=== PATIENT | female | born 1960 | race Caucasian/White ===

== ENCOUNTER 2020-05-24 09:32 | Outpatient (REF) | payer BC, SELFPAY ==
[2020-05-25 15:34] LABS: BV Int Neg Control Negative (Negative); BV Int Pos Control Positive (Positive)
[2020-05-28 19:37] LABS: HPV mRNA E6/E7 Not Detected (Not Detected)
== END 2020-05-24 09:33 | disposition home or self-care (01) ==
LOC: HO.LAB 09:32
PROVIDERS: PCP Internal Medicine; Referring Provider Internal Medicine; Visit Provider Advanced Practice Midwife
DX: Z01.419 Encounter for gynecological examination (general) (routine) without abnormal findings (principal); N89.8 Other specified noninflammatory disorders of vagina
CPT/HCPCS: 87480; 87510; 87624; 87625; 87660; 88141; 88142

== ENCOUNTER → 2020-06-14 10:02 | Outpatient (BNVA) | payer BC, SELFPAY | PROVIDERS: PCP Internal Medicine; Visit Provider Advanced Practice Midwife | DX: Z76.89 Persons encountering health services in other specified circumstances (principal) ==

== ENCOUNTER 2020-10-02 09:56 | Outpatient (REF) | payer BC, SELFPAY ==
[2020-10-02 11:39] LABS: Hematocrit 41.9 % (37-47); Hemoglobin 13.5 g/dl (12.0-16.0)
[2020-10-02 11:47] LABS: Estimated Average Glucose 177 mg/dL; Hemoglobin A1c % 7.8 %
[2020-10-02 11:49] LABS: Alanine Aminotransferase 22 U/L (0-31); Albumin Level 4.7 g/dL (3.5-5.0); Alkaline Phosphatase 77 U/L (39-117); Anion Gap 14 (12-20); Aspartate Amino Transferase 23 U/L (5-31); Bilirubin Direct 0.2 mg/dL (0.0-0.5); Bilirubin Total 0.8 mg/dL (0.0-1.0); Blood Urea Nitrogen 9 mg/dL (9-16); Calcium 9.9 mg/dL (8.4-10.2); Carbon Dioxide 27 mmol/L (22-29); Chloride 103 mmol/L (96-108); Estimated Glomerular Filt Rate > 60; Glucose Random 79 mg/dL (60-115); Potassium 4.3 mmol/L (3.3-5.1); Sodium 140 mmol/L (135-145); Total Protein 8.1 g/dL (6.5-8.0)
[2020-10-02 12:22] LABS: Creatinine Urine 34.22 mg/dL; Microalbumin Urine < 5.0 mg/L
[2020-10-03 03:27] LABS: LDL Cholesterol Direct 93 mg/dL (<100)
== END 2020-10-02 09:57 | disposition home or self-care (01) ==
LOC: HO.HMGCLDS 09:56
PROVIDERS: PCP Internal Medicine; Visit Provider Internal Medicine
DX: E78.9 Disorder of lipoprotein metabolism, unspecified (principal); I10 Essential (primary) hypertension; E13.9 Other specified diabetes mellitus without complications; M19.90 Unspecified osteoarthritis, unspecified site
CPT/HCPCS: 36415; 80048; 80076; 82043; 83036; 83721; 85014; 85018

== ENCOUNTER 2020-12-19 12:46 | Outpatient (REF) | payer BC, SELFPAY ==
--- NOTE | ~2020-12-19 | XR_ITS ---
EXAMINATION: XR LUMBOSACRAL SPINE CLINICAL INFORMATION: Low back pain. COMPARISON: None TECHNIQUE: Three views of the lumbosacral spine. FINDINGS: There is normal lumbar lordosis. There is loss of L4-L5 disc height. Rest of the disc heights are normal. There is moderate left L3-L4 facet joint arthropathy and hypertrophy and bilateral moderate L4-L5 facet joint arthropathy. No acute fracture or lytic process seen. Paravertebral soft tissues are normal. XR/XR lumbar spine 2-3V IMPRESSION: 1. Degenerative disc changes L4-L5 disc level. 2. Moderate L4-L5 and bilateral L5-S1 facet joint arthropathy and hypertrophy.
== END 2020-12-19 12:47 | disposition home or self-care (01) ==
LOC: HO.HMGCX 12:46
PROVIDERS: PCP Internal Medicine; Visit Provider Internal Medicine
DX: M54.5 Low back pain (principal)
CPT/HCPCS: 72100

== ENCOUNTER 2021-02-14 08:57 | Outpatient (REF) | payer BC, SELFPAY ==
--- NOTE | 2021-02-14 08:59 | EMG_ITS ---
Left tibial and peroneal motor studies were performed. Left superficial peroneal and sural sensory studies were performed. Tibial H-reflex was obtained and paraspinal muscles were tested. 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 MD OLMAN Dumas/MULU / [id number]
== END 2021-02-14 08:58 | disposition home or self-care (01) ==
LOC: HO.NEURO 08:57
PROVIDERS: Visit Provider Internal Medicine
DX: R20.2 Paresthesia of skin (principal)
CPT/HCPCS: 95886; 95909

== ENCOUNTER 2021-03-26 14:11 | Outpatient (REF) | payer BC, SELFPAY ==
[2021-03-26 16:44] LABS: MANUAL DIFF FLAG NO
[2021-03-26 16:54] LABS: Basophils Absolute Auto 0.1 X10*3/uL (0.0-0.2); Basophils Percent Auto 0.9 % (0-2); Eosinophils Absolute Auto 0.2 X10*3/uL (0.0-0.4); Hematocrit 41.6 % (37-47); Hemoglobin 13.5 g/dl (12.0-16.0); Imm Gran Abs Auto 0.03 X10*3/uL (0.00-0.03); Imm Gran Pct Auto 0.4 % (0.0-0.4); Lymphocytes Absolute Auto 2.5 X10*3/uL (1.2-4.9); Mean Corpuscular HGB Conc 32.5 g/dl (31.0-35.0); Mean Corpuscular Hemoglobin 29.6 pg (27.0-33.0); Mean Corpuscular Volume 91.2 fL (80-98); Mean Platelet Volume 10.8 fL (9.4-12.3); Monocytes Absolute Auto 0.5 X10*3/uL (0.1-1.2); Neutrophils Absolute Auto 4.3 X10*3/uL (2.0-8.3); Neutrophils Percent Auto 56.7 % (45-73); Platelet Count 340 X10*3/uL (160-400); Red Blood Count 4.56 X10*6/uL (4.20-5.50); Red Cell Distribution Width 12.8 % (11.0-16.0); White Blood Count 7.6 X10*3/uL (4.8-10.8)
[2021-03-26 17:06] LABS: Estimated Average Glucose 171 mg/dL; Hemoglobin A1c % 7.6 %
[2021-03-26 17:20] LABS: Creatinine Urine 133.47 mg/dL; Microalbum/Creatinine Ratio Ur 15.7 ug/mg cr
[2021-03-26 17:30] LABS: Alanine Aminotransferase 19 U/L (0-31); Albumin Level 4.8 g/dL (3.5-5.0); Alkaline Phosphatase 70 U/L (39-117); Anion Gap 16 (12-20); Aspartate Amino Transferase 22 U/L (5-31); Bilirubin Total 0.5 mg/dL (0.0-1.0); Blood Urea Nitrogen 14 mg/dL (9-16); Calcium 10.5 mg/dL (8.4-10.2); Carbon Dioxide 24 mmol/L (22-29); Chloride 107 mmol/L (96-108); Estimated Glomerular Filt Rate 58; Glucose Random 182 mg/dL (60-115); Potassium 4.5 mmol/L (3.3-5.1); Sodium 142 mmol/L (135-145)
[2021-03-26 17:44] LABS: TSH reflex Free T4 0.96 uIU/mL (0.32-4.0)
[2021-03-28 01:51] LABS: LDL Cholesterol Direct 115 mg/dL (<100)
== END 2021-03-26 14:12 | disposition home or self-care (01) ==
LOC: HO.HMGCLDS 14:11
PROVIDERS: PCP Internal Medicine; Visit Provider Internal Medicine
DX: E13.9 Other specified diabetes mellitus without complications (principal); E66.9 Obesity, unspecified; E78.9 Disorder of lipoprotein metabolism, unspecified; I10 Essential (primary) hypertension
CPT/HCPCS: 36415; 80053; 82043; 83036; 83721; 84443; 85025

== ENCOUNTER 2021-10-08 09:44 | Outpatient (REF) | payer BC, SELFPAY ==
[2021-10-08 12:13] LABS: Alanine Aminotransferase 32 U/L (0-31); Albumin Level 4.7 g/dL (3.5-5.0); Alkaline Phosphatase 74 U/L (39-117); Anion Gap 13 (12-20); Aspartate Amino Transferase 36 U/L (5-31); Bilirubin Total 0.6 mg/dL (0.0-1.0); Blood Urea Nitrogen 13 mg/dL (9-16); Calcium 10.9 mg/dL (8.4-10.2); Carbon Dioxide 27 mmol/L (22-29); Chloride 103 mmol/L (96-108); Estimated Glomerular Filt Rate > 60; Glucose Random 147 mg/dL (60-115); Potassium 4.6 mmol/L (3.3-5.1); Sodium 138 mmol/L (135-145); Total Protein 7.9 g/dL (6.5-8.0)
[2021-10-08 12:31] LABS: Creatinine Urine 229.83 mg/dL; Microalbum/Creatinine Ratio Ur 18.2 ug/mg cr
[2021-10-08 12:32] LABS: Estimated Average Glucose 197 mg/dL; Hemoglobin A1c % 8.5 %
[2021-10-09 13:02] LABS: LDL Cholesterol Direct 117 mg/dL (<100)
== END 2021-10-08 09:45 | disposition home or self-care (01) ==
LOC: HO.HMGCLDS 09:44
PROVIDERS: Visit Provider Internal Medicine
DX: Z00.01 Encounter for general adult medical examination with abnormal findings (principal); E66.09 Other obesity due to excess calories; E78.9 Disorder of lipoprotein metabolism, unspecified; I10 Essential (primary) hypertension; E13.9 Other specified diabetes mellitus without complications
CPT/HCPCS: 36415; 80053; 82043; 83036; 83721

== ENCOUNTER 2022-03-12 09:12 | Outpatient (REF) | payer BC, SELFPAY ==
[2022-03-12 11:44] LABS: Estimated Average Glucose 189 mg/dL; Hemoglobin A1c % 8.2 %
[2022-03-12 11:45] LABS: Alanine Aminotransferase 20 U/L (0-31); Albumin Level 4.6 g/dL (3.5-5.0); Alkaline Phosphatase 67 U/L (39-117); Anion Gap 17 (12-20); Aspartate Amino Transferase 21 U/L (5-31); Bilirubin Total 0.7 mg/dL (0.0-1.0); Blood Urea Nitrogen 19 mg/dL (9-16); Calcium 9.9 mg/dL (8.4-10.2); Carbon Dioxide 23 mmol/L (22-29); Chloride 105 mmol/L (96-108); Estimated Glomerular Filt Rate > 60; Glucose Random 141 mg/dL (60-115); Potassium 4.5 mmol/L (3.3-5.1); Sodium 140 mmol/L (135-145); Total Protein 7.8 g/dL (6.5-8.0)
[2022-03-12 12:16] LABS: Creatinine Urine 107.58 mg/dL; Microalbum/Creatinine Ratio Ur 10.2 ug/mg cr
[2022-03-13 11:32] LABS: Calcium (PTHI) 9.9 mg/dL (8.6-10.4); PTHI 30 pg/mL (16-77)
== END 2022-03-12 09:13 | disposition home or self-care (01) ==
LOC: HO.HMGCLDS 09:12
PROVIDERS: PCP Internal Medicine; Visit Provider Internal Medicine
DX: E13.9 Other specified diabetes mellitus without complications (principal); E78.9 Disorder of lipoprotein metabolism, unspecified; I10 Essential (primary) hypertension; E83.52 Hypercalcemia; E66.09 Other obesity due to excess calories
CPT/HCPCS: 36415; 80053; 82043; 83036; 83970

== ENCOUNTER 2022-03-18 14:43 | Outpatient (REF) | payer BC, SELFPAY ==
--- NOTE | ~2022-03-18 | XR_ITS ---
EXAMINATION: XR HIP, RIGHT XR SHOULDER, RIGHT CLINICAL INFORMATION: Right hip and right shoulder pain. COMPARISON: None TECHNIQUE: Right hip 2 views. Right shoulder 3 views. FINDINGS: RIGHT HIP: There is a maintained right hip joint space. No bony erosive changes, acute fracture or dislocation. There is mild periarticular spurring. The soft tissues are normal. RIGHT SHOULDER: There is loss of right AC joint space with inferior periarticular spurring. No visible acute fracture, dislocation or subluxation seen. The soft tissues are normal. XR/XR hip RT min 2V IMPRESSION: Mild degenerative changes right AC joint with inferior periarticular spurring. No visible acute fracture, dislocation or subluxation seen. No acute fracture or dislocation right hip. There is mild degenerative changes.
--- NOTE | ~2022-03-18 | XR_ITS ---
EXAMINATION: XR HIP, RIGHT XR SHOULDER, RIGHT CLINICAL INFORMATION: Right hip and right shoulder pain. COMPARISON: None TECHNIQUE: Right hip 2 views. Right shoulder 3 views. FINDINGS: RIGHT HIP: There is a maintained right hip joint space. No bony erosive changes, acute fracture or dislocation. There is mild periarticular spurring. The soft tissues are normal. RIGHT SHOULDER: There is loss of right AC joint space with inferior periarticular spurring. No visible acute fracture, dislocation or subluxation seen. The soft tissues are normal. XR/XR shoulder RT min 2V IMPRESSION: Mild degenerative changes right AC joint with inferior periarticular spurring. No visible acute fracture, dislocation or subluxation seen. No acute fracture or dislocation right hip. There is mild degenerative changes.
== END 2022-03-18 14:44 | disposition home or self-care (01) ==
LOC: HO.HMGCX 14:43
PROVIDERS: PCP Internal Medicine; Visit Provider Internal Medicine
DX: M25.551 Pain in right hip (principal); M24.811 Other specific joint derangements of right shoulder, not elsewhere classified
CPT/HCPCS: 73030; 73502

== ENCOUNTER 2022-04-22 16:33 | Outpatient (REF) | payer BC, SELFPAY ==
[2022-04-22 17:56] LABS: Appearance Urine Turbid; Color Urine Yellow; Glucose Urine UA >=1000 mg/dL (Negative); Leukocyte Esterase Urine Large (3+) (Negative); Nitrite Urine Negative (Negative); PH 5.5 (5.0-9.0); Specific Gravity - Urine 1.015 (1.005-1.025); UMIC TRIGGER UACC YES; Urine Blood Moderate (2+) (Negative); Urine Ketones Negative (Negative); Urine Protein 30 (1+) mg/dL (Neg-Trace)
[2022-04-22 18:28] LABS: Bacteria Urine 4+ (None Seen); Hyaline Casts Urine 0-2 /LPF (0-2); UACC Culture Trigger YES; WBC Urine >50 /HPF (0-5)
== END 2022-04-22 16:34 | disposition home or self-care (01) ==
LOC: HO.LAB 16:33
PROVIDERS: PCP Internal Medicine; Visit Provider Internal Medicine
DX: R30.0 Dysuria (principal)
CPT/HCPCS: 81001; 87086; 87088; 87186

== ENCOUNTER 2022-04-30 07:12 | Outpatient (REF) | payer BC, SELFPAY ==
--- NOTE | ~2022-04-30 | XR_ITS ---
EXAMINATION: XR PELVIS CLINICAL INFORMATION: Pain COMPARISON: Right hip radiograph from 03/18/2022 TECHNIQUE: AP view of the pelvis. FINDINGS: No acute visible fracture or dislocation. Mild degenerative changes of the bilateral femoral acetabular joints with joint space narrowing and periarticular osteophyte formation. Degenerative arthropathy of the lower lumbar spine and lumbosacral junction. Joint spaces and alignment are otherwise maintained. Bowel gas is unremarkable. Soft tissues are unremarkable. XR/XR pelvis 1-2V IMPRESSION: 1. No acute visible fracture or dislocation. 2. Mild degenerative changes of the bilateral femoral acetabular joints. 3. Degenerative arthropathy of the lower lumbar spine and lumbosacral junction.
== END 2022-04-30 07:13 | disposition home or self-care (01) ==
LOC: HO.HOSX 07:12
PROVIDERS: Visit Provider Physician Assistant
DX: M25.551 Pain in right hip (principal); M25.552 Pain in left hip
CPT/HCPCS: 72170

== ENCOUNTER 2022-06-10 10:50 | Outpatient (REF) | payer BC, SELFPAY ==
--- NOTE | ~2022-06-10 | MM_ITS ---
EXAMINATION: MM SCREENING DIGITAL BREAST TOMOSYNTHESIS, BILATERAL CLINICAL INFORMATION: Screening. Asymptomatic. COMPARISON: Mammography: February 16, 2020 TECHNIQUE: Digital breast tomosynthesis is performed in both the craniocaudal and mediolateral oblique views along with computer-aided detection (CAD). Synthesized 2D images are generated from the tomosynthesis. FINDINGS: The breasts are almost entirely fatty (ACR BI-RADS breast composition Category a). There are no significant masses, abnormal calcifications, or other abnormalities. MM/MM tomosynthesis screening BI IMPRESSION: No significant changes ASSESSMENT: BI-RADS 1: Negative RECOMMENDATION: Routine annual mammography screening. This patient's information was entered into a reminder system with a target due date for their next mammogram.
== END 2022-06-10 10:51 | disposition home or self-care (01) ==
LOC: HO.MAMMO 10:50
PROVIDERS: PCP Internal Medicine; Visit Provider Internal Medicine
DX: Z12.31 Encounter for screening mammogram for malignant neoplasm of breast (principal)
CPT/HCPCS: 77063; 77067

== ENCOUNTER 2022-09-06 09:52 | Outpatient (REF) | payer BC, SELFPAY ==
[2022-09-06 10:50] LABS: MANUAL DIFF FLAG NO
[2022-09-06 10:55] LABS: Basophils Absolute Auto 0.1 X10*3/uL (0.0-0.2); Basophils Percent Auto 1.3 % (0-2); Eosinophils Absolute Auto 0.3 X10*3/uL (0.0-0.4); Eosinophils Percent Auto 4.8 % (0-4); Hematocrit 44.9 % (37.0-47.0); Hemoglobin 14.3 g/dl (12.0-16.0); Imm Gran Abs Auto 0.02 X10*3/uL (0.00-0.03); Imm Gran Pct Auto 0.3 % (0.0-0.4); Lymphocytes Absolute Auto 2.4 X10*3/uL (1.2-4.9); Lymphocytes Percent Auto 39.5 % (20-40); Mean Corpuscular HGB Conc 31.8 g/dl (31.0-35.0); Mean Corpuscular Hemoglobin 29.5 pg (27.0-33.0); Mean Corpuscular Volume 92.8 fL (80.0-98.0); Mean Platelet Volume 9.9 fL (9.4-12.3); Monocytes Absolute Auto 0.4 X10*3/uL (0.1-1.2); Monocytes Percent Auto 6.3 % (2-11); Neutrophils Absolute Auto 2.9 x10*3/uL (2.0-8.3); Neutrophils Percent Auto 47.8 % (45-73); Platelet Count 309 X10*3/uL (160-400); Red Blood Count 4.84 X10*6/uL (4.20-5.50); White Blood Count 6.1 X10*3/uL (4.8-10.8)
[2022-09-06 11:09] LABS: Estimated Average Glucose 131 mg/dL; Hemoglobin A1c % 6.2 %
[2022-09-06 12:11] LABS: Alanine Aminotransferase 16 U/L (0-31); Albumin Level 4.4 g/dL (3.5-5.0); Alkaline Phosphatase 63 U/L (39-117); Anion Gap 14 (12-20); Aspartate Amino Transferase 17 U/L (5-31); Bilirubin Total 0.6 mg/dL (0.0-1.0); Blood Urea Nitrogen 18 mg/dL (9-16); Calcium 9.8 mg/dL (8.4-10.2); Carbon Dioxide 25 mmol/L (22-29); Chloride 107 mmol/L (96-108); Cholesterol 156 mg/dL; Estimated Glomerular Filt Rate > 60; Glucose Fasting 84 mg/dL (60-99); Glucose Random 84 mg/dL (60-115); HDL Cholesterol 50 mg/dL; LDL Cholesterol Calculated 79 mg/dl; Potassium 4.9 mmol/L (3.3-5.1); Sodium 141 mmol/L (135-145); Total Protein 7.2 g/dL (6.5-8.0); Triglycerides 137 mg/dL
[2022-09-06 12:16] LABS: Creatinine Urine 115.02 mg/dL; Microalbum/Creatinine Ratio Ur 8.6 ug/mg cr
== END 2022-09-06 09:53 | disposition home or self-care (01) ==
LOC: HO.HMGCLDS 09:52
PROVIDERS: Visit Provider Internal Medicine
DX: Z00.01 Encounter for general adult medical examination with abnormal findings (principal); E66.09 Other obesity due to excess calories; I10 Essential (primary) hypertension; R80.9 Proteinuria, unspecified; M19.90 Unspecified osteoarthritis, unspecified site; M24.811 Other specific joint derangements of right shoulder, not elsewhere classified; M25.551 Pain in right hip; R79.89 Other specified abnormal findings of blood chemistry; E78.9 Disorder of lipoprotein metabolism, unspecified
CPT/HCPCS: 36415; 80053; 80061; 82043; 83036; 85025

== ENCOUNTER 2022-12-30 09:42 | Outpatient (REF) | payer BC, SELFPAY ==
[2022-12-30 11:40] LABS: Estimated Average Glucose 146 mg/dL; Hemoglobin A1c % 6.7 %
[2022-12-30 11:54] LABS: Creatinine Urine 45.27 mg/dL; Microalbum/Creatinine Ratio Ur 19.8 ug/mg cr
[2022-12-30 12:13] LABS: Alanine Aminotransferase 14 U/L (0-31); Albumin Level 4.8 g/dL (3.5-5.0); Alkaline Phosphatase 70 U/L (39-117); Anion Gap 13 (12-20); Aspartate Amino Transferase 15 U/L (5-31); Bilirubin Total 0.6 mg/dL (0.0-1.0); Blood Urea Nitrogen 16 mg/dL (9-16); Calcium 10.9 mg/dL (8.4-10.2); Carbon Dioxide 29 mmol/L (22-29); Chloride 104 mmol/L (96-108); Estimated Glomerular Filt Rate 57; Glucose Random 126 mg/dL (60-115); Sodium 141 mmol/L (135-145); Total Protein 8.2 g/dL (6.5-8.0)
== END 2022-12-30 09:43 | disposition home or self-care (01) ==
LOC: HO.HMGCLDS 09:42
PROVIDERS: PCP Internal Medicine; Visit Provider Internal Medicine
DX: E13.9 Other specified diabetes mellitus without complications (principal); E66.09 Other obesity due to excess calories; I10 Essential (primary) hypertension; R80.9 Proteinuria, unspecified; E78.9 Disorder of lipoprotein metabolism, unspecified
CPT/HCPCS: 36415; 80053; 82043; 83036

== ENCOUNTER 2023-05-23 09:48 | Outpatient (REF) | payer BC, SELFPAY ==
[2023-05-23 11:03] LABS: MANUAL DIFF FLAG NO
[2023-05-23 11:09] LABS: Basophils Absolute Auto 0.1 X10*3/uL (0.0-0.2); Eosinophils Absolute Auto 0.1 X10*3/uL (0.0-0.4); Eosinophils Percent Auto 1.7 % (0-4); Hematocrit 47.9 % (37.0-47.0); Hemoglobin 15.3 g/dl (12.0-16.0); Imm Gran Abs Auto 0.02 X10*3/uL (0.00-0.03); Imm Gran Pct Auto 0.3 % (0.0-0.4); Lymphocytes Absolute Auto 2.6 X10*3/uL (1.2-4.9); Lymphocytes Percent Auto 36.9 % (20-40); Mean Corpuscular HGB Conc 31.9 g/dl (31.0-35.0); Mean Corpuscular Volume 93.9 fL (80.0-98.0); Mean Platelet Volume 9.5 fL (9.4-12.3); Monocytes Absolute Auto 0.4 X10*3/uL (0.1-1.2); Monocytes Percent Auto 5.4 % (2-11); Neutrophils Absolute Auto 3.9 x10*3/uL (2.0-8.3); Neutrophils Percent Auto 54.7 % (45-73); Platelet Count 326 X10*3/uL (160-400); Red Cell Distribution Width 13.8 % (11.0-16.0); White Blood Count 7.2 X10*3/uL (4.8-10.8)
[2023-05-23 11:17] LABS: Estimated Average Glucose 143 mg/dL; Hemoglobin A1c % 6.6 % (<6.0)
[2023-05-23 11:20] LABS: Alanine Aminotransferase 16 U/L (0-31); Albumin Level 4.4 g/dL (3.5-5.0); Alkaline Phosphatase 57 U/L (39-117); Anion Gap 15 (12-20); Aspartate Amino Transferase 15 U/L (5-31); Bilirubin Total 0.8 mg/dL (0.0-1.0); Blood Urea Nitrogen 21 mg/dL (9-16); Calcium 10.1 mg/dL (8.4-10.2); Carbon Dioxide 26 mmol/L (22-29); Chloride 102 mmol/L (96-108); Estimated Glomerular Filt Rate 59; Glucose Random 84 mg/dL (60-115); Potassium 4.8 mmol/L (3.3-5.1); Sodium 138 mmol/L (135-145); Total Protein 7.9 g/dL (6.5-8.0)
[2023-05-23 12:14] LABS: Creatinine Urine 87.92 mg/dL; Microalbum/Creatinine Ratio Ur 10.2 ug/mg cr (<30)
== END 2023-05-23 09:49 | disposition home or self-care (01) ==
LOC: HO.HMGCLDS 09:48
PROVIDERS: PCP Internal Medicine; Visit Provider Internal Medicine
DX: E13.9 Other specified diabetes mellitus without complications (principal); I10 Essential (primary) hypertension; E78.9 Disorder of lipoprotein metabolism, unspecified; E66.09 Other obesity due to excess calories; G57.30 Lesion of lateral popliteal nerve, unspecified lower limb; R79.89 Other specified abnormal findings of blood chemistry; R80.9 Proteinuria, unspecified
CPT/HCPCS: 36415; 80053; 82043; 82570; 83036; 85025

== ENCOUNTER 2023-05-26 09:35 | Outpatient (AMB) | payer BC, SELFPAY ==
--- NOTE | 2023-05-26 09:36 | A.OFFPC_ITS ---
Vital Signs 05/26/23 09:37 Height 5 ft Weight 171 lb 2 oz BMI 33.4 BP 116/62 Blood Pressure Location Rt brachial Position Sitting Pulse 71 Pulse Source Pulse Oximeter Pulse Oximetry (%) 98 Oxygen Delivery Method Room Air Intake Visit Reasons: 4m follow up Allergies No Known Allergies [No Known Allergies*] Allergy (Verified 05/26/23 09:42) Medication List - Last Reconciled 05/26/23 by Bk Ramirez MD blood sugar diagnostic qd prn blood sugar diagnostic (Accu-Chek Guide test strips) Accu-chek guide me test strips. Patient to check blood sugars 3 times every other day blood-glucose meter As directed blood-glucose sensor ([employer] Chad 3 Sensor device) As directed calcium carbonate-vitamin D3 500 mg-5 mcg (200 unit) (Calcium 500 + D) 1 tab PO DAILY glipizide 5 mg PO BID 90 days Jardiance (empagliflozin) 25 mg PO DAILY 90 days NS lancets qd prn lisinopril 20 mg PO DAILY 90 days lovastatin 40 mg PO DAILY Tobacco use date assessed: 05/26/23 Dental Screening Dental Screen Date: 05/26/23 Did you have a dental visit in the last 12 months?: No Did you have a dental problem in the last 6 months where you did not have access to dental care?: No Was dental information given to patient?: Patient declined HPI 4m follow up HPI Details Patient is a 62-year-old female came in today for her regular follow-up appointment Patient's depression screening is positive, she admits that she does feel depressed because she misses her children She like to be started on medication, I have sent Lexapro 10 mg patient is to start taking that 1 every day Hypertension: Blood pressure stable with lisinopril 20 mg Continue lovastatin 40 mg for lipid control Diabetes mellitus: Hemoglobin A1c is stable at 6.6, checked recently Patient is on glipizide 10 mg b.i.d. and Jardiance 25 mg daily, she says that her blood pressure drops frequently I am cutting down glipizide to 5 mg b.i.d. 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 1. Little interest or pleasure in doing things: not at all 2. Feeling down, depressed, or hopeless: not at all 3. Trouble falling or staying asleep, or sleeping too much: more than half the days 4. Feeling tired or having little energy: more than half the days 5. Poor appetite or overeating: not at all 6. Feeling bad about yourself - or that you are a failure or have let yourself or your family down: more than half the days 7. Trouble concentrating on things, such as reading the newspaper or watching television: not at all 8. Moving or speaking so slowly that other people could have noticed. Or the opposite - being so fidgety or restless that you have been moving around a lot more than usual: not at all 9. Thoughts that you would be better off or of hurting yourself in some way: not at all Total score: 6 Depression Screening Interpretation: Negative Depression Screening Done: Yes 44231 - PHQ-9 Billing: Yes Source: Developed by Drs. Bo Can, Ermelinda Franco, Braulio Jones and colleagues, with an educational peter from [place]. Thrive Questionnaire Date Thrive assessed: 03/26/21 AUDIT C Alcohol Use Questionnaire (AUDIT-C) 1. How often do you have a drink containing alcohol?: Never 3. How often do you have six or more drinks on one occasion?: Never Total Score: 0 Score Reviewed/Action Taken: Yes GRAYSON-7 AMB Questionnaire GRAYSON-7 Date GRAYSON - 7 assessed: 05/26/23 Feeling nervous, anxious, or on edge: 0 = Not at all Not being able to stop or control worryin = Not at all Worrying too much about different things: 1 = Several days Trouble relaxin = Not at all Being so restless that it is hard to sit still: 0 = Not at all Becoming easily annoyed or irritable: 0 = Not at all Feeling afraid as if something awful might happen: 0 = Not at all Total GRAYSON-7 score (0-4 normal; 5-9 mild; 10-14 moderate; 15-21 severe): 1 Source: Developed by Drs. Bo Can, Ermelinda Franco, Braulio Jones and colleagues, with an educational peter from [place]. GRAYSON-7 Assessment Billing GRAYSON-7 Assessment Tool: GRAYSON-7 Assessment 22624 Review of Systems Const Denies chills and Denies fever(s) ENT Denies epistaxis and Denies nasal discharge Card Denies chest pain Resp Denies chest congestion, Denies cough and Denies hemoptysis GI Denies diarrhea and Denies nausea Skin/Breast Denies rash Neuro Reports no additional complaints Psych Reports no additional complaints Endo Reports no additional complaints Physical exam (Primary Care) Vital Signs: Last Vital Signs Pulse 71 05/26/23 09:37 BP 116/62 05/26/23 09:37 Pulse Ox 98 05/26/23 09:37 Oxygen Delivery Method Room Air 05/26/23 09:37 BMI result Body Mass Index 33.4 Tobacco/Smoking Status: Tobacco use Status Tobacco use date assessed 05/26/23 05/26/23 09:42 Patient Tobacco Use Status Former Tobacco user 05/26/23 09:37 e-Cigarette/Vaping Use Never Used 05/26/23 09:37 PHQ-9: PHQ-9 Score PHQ-9: Total score 6 05/26/23 11:54 Depression Screening Interpretation: Negative Thrive Assessment: Date of Thrive Assessment Date Thrive assessed 03/26/21 05/26/23 09:37 Const General: cooperative, comfortable and no acute distress Orientation/consciousness: patient oriented x3 HENMT Head: Yes normocephalic Eyes General: appearance normal, both eyes and all related structures Neck Neck: Yes supple Resp Effort & Inspection: normal respiratory effort, no cough and no stridor Cardio Rhythm: regular rhythm Heart sounds: S1 normal heart sound present and S2 normal heart sound present Skin General skin exam: turgor normal Neuro General: patient oriented x3, tone normal and moves all extremities Extrem Right lower extremity: no edema Left lower extremity: no edema Assessment and Plan Assessment & Plan (1) Diabetes 1.5, managed as type 2: Code(s): E13.9 - Other specified diabetes mellitus without complications (2) Hypertension, essential: Code(s): I10 - Essential (primary) hypertension (3) Lipid disorder: Code(s): E78.9 - Disorder of lipoprotein metabolism, unspecified (4) Major depression, recurrent: Code(s): F33.9 - Major depressive disorder, recurrent, unspecified Qualifiers: Active/Remission status: currently active Major depression episode severity: moderate Qualified Code(s): F33.1 - Major depressive disorder, recurrent, moderate (5) Obesity due to excess calories: Code(s): E66.09 - Other obesity due to excess calories Qualifiers: Obesity classification: adult class 1 (BMI 30 - 34.9) Serious obesity comorbidity presence: with serious comorbidity Body mass index: BMI 33.0-33.9 Qualified Code(s): E66.09 - Other obesity due to excess calories; Z68.33 - Body mass index [BMI] 33.0-33.9, adult (6) LFT elevation: Code(s): R79.89 - Other specified abnormal findings of blood chemistry (7) Microalbuminuria: Code(s): R80.9 - Proteinuria, unspecified Plan Patient is a 62-year-old female came in today for her regular follow-up appointment Patient's depression screening is positive, she admits that she does feel depressed because she misses her children She like to be started on medication, I have sent Lexapro 10 mg patient is to start taking that 1 every day Hypertension: Blood pressure stable with lisinopril 20 mg Continue lovastatin 40 mg for lipid control Diabetes mellitus: Hemoglobin A1c is stable at 6.6, checked recently Patient is on glipizide 10 mg b.i.d. and Jardiance 25 mg daily, she says that her blood pressure drops frequently I am cutting down glipizide to 5 mg b.i.d. BMI is elevated need to lose weight Patient does not want to take flu vaccine LFTs and microalbumin is stable Follow-up 3 months Medications: New escitalopram oxalate (Lexapro) 10 mg PO DAILY 90 tabs 0RF Changed From glipizide 10 mg PO BID 90 days 180 tabs 0RF E13.9 - Other specified diabetes mellitus without complications To glipizide 5 mg PO BID 180 tabs 0RF 90 days E13.9 - Other specified diabetes mellitus without complications Coding Level of Care Code Est Pt Level 4 (56454) Diagnoses Diabetes 1.5, managed as type 2 E13.9 Hypertension, essential I10 Lipid disorder E78.9 Moderate episode of recurrent major depressive disorder F33.1 Active/Remission status: currently active Major depression episode severity: moderate Class 1 obesity due to excess calories with serious comorbidity and body mass index (BMI) of 33.0 to 33.9 in adult E66.09; Z68.33 Obesity classification: adult class 1 (BMI 30 - 34.9) Serious obesity comorbidity presence: with serious comorbidity Body mass index: BMI 33.0-33.9 LFT elevation R79.89 Microalbuminuria R80.9 Additional Codes GRAYSON-7 Assessment Billing - GRAYSON-7 Assessment Tool: GRAYSON-7 Assessment [id number] ([id number])
[2023-05-26 09:37] VITALS: BP 116/62; PULSE 71; O2SAT 98; BMI 33.4
== END 2023-05-26 10:49 | disposition home or self-care (01) ==
PROVIDERS: PCP Internal Medicine; Visit Provider Internal Medicine
DX: E13.9 Other specified diabetes mellitus without complications (principal); F33.1 Major depressive disorder, recurrent, moderate; I10 Essential (primary) hypertension; E78.9 Disorder of lipoprotein metabolism, unspecified; E66.09 Other obesity due to excess calories; Z68.33 Body mass index [BMI] 33.0-33.9, adult; R79.89 Other specified abnormal findings of blood chemistry; R80.9 Proteinuria, unspecified
CPT/HCPCS: 99214

== ENCOUNTER 2023-09-22 09:24 | Outpatient (AMB) | payer BC, SELFPAY ==
[2023-09-22 09:25] VITALS: BP 126/72; PULSE 72; O2SAT 96; BMI 33.6
--- NOTE | 2023-09-22 09:25 | A.OFFPC_ITS ---
Vital Signs 3 09/22/23 09:25 Height 5 ft Weight 172 lb BMI 33.6 BP 126/72 Blood Pressure Location Rt brachial Position Sitting Pulse 72 Pulse Source Pulse Oximeter Pulse Oximetry (%) 96 Oxygen Delivery Method Room Air Intake Visit Reasons: 8m follow up Allergies No Known Allergies [No Known Allergies*] Allergy (Verified 09/22/23 09:26) Medication List - Last Reconciled 09/22/23 by Bk Ramirez MD blood sugar diagnostic qd prn blood sugar diagnostic (Accu-Chek Guide test strips) Accu-chek guide me test strips. Patient to check blood sugars 3 times every other day blood-glucose meter As directed blood-glucose sensor (3SP [employer] Chad 3 Sensor device) As directed calcium carbonate-vitamin D3 500 mg-5 mcg (200 unit) (Calcium 500 + D) 1 tab PO DAILY escitalopram oxalate (Lexapro) 10 mg PO DAILY glipizide 5 mg PO BID 90 days Jardiance (empagliflozin) 25 mg PO DAILY 90 days NS lancets qd prn lisinopril 20 mg PO DAILY 90 days lovastatin 40 mg PO DAILY Tobacco use date assessed: 09/22/23 Dental Screening Dental Screen Date: 09/22/23 Did you have a dental visit in the last 12 months?: No Did you have a dental problem in the last 6 months where you did not have access to dental care?: No Was dental information given to patient?: No HPI 8m follow up 2 HPI0 Details Patient is a 63-year-old female came in today for her regular follow-up appointment She could not tolerate Lexapro, patient says that it made her dizzy She says that more than depression she is feeling anxious Patient have peroneal neuropathy she is diabetic, I am starting her on gabapentin 100 mg to be taken at night And if patient can tolerate medication she may start taking 1 in the morning, I feel that it will help her in number of face including anxiety She is complaining of pain left hand palmar aspect for the past 2 months, patient says that she has not sure what is causing the pain But she feels it when she out stretch her hand , on examination she does have a slight swelling left side compared to right I have ordered x-ray offer hand at she will see a hand specialist She is to give me a call in 2 weeks to update me on this medication Hypertension: Blood pressure stable with lisinopril 20 mg Continue lovastatin 40 mg for lipid control Diabetes mellitus: Hemoglobin A1c is stable Patient is on glipizide 10 mg b.i.d. and Jardiance 25 mg daily, and glipizide to 5 mg b.i.d. 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 1. Little interest or pleasure in doing things: several days 2. Feeling down, depressed, or hopeless: not at all 3. Trouble falling or staying asleep, or sleeping too much: more than half the days 4. Feeling tired or having little energy: more than half the days 5. Poor appetite or overeating: more than half the days 6. Feeling bad about yourself - or that you are a failure or have let yourself or your family down: more than half the days 7. Trouble concentrating on things, such as reading the newspaper or watching television: several days 8. Moving or speaking so slowly that other people could have noticed. Or the opposite - being so fidgety or restless that you have been moving around a lot more than usual: not at all 9. Thoughts that you would be better off or of hurting yourself in some way: not at all Total score: 10 Depression Screening Interpretation: Positive Depression Screening Follow-up: Existing condition and In treatment Depression Screening Done: Yes 37202 - PHQ-9 Billing: Yes Source: Developed by Drs. Bo Can, Ermelinda Franco, Braulio Jones and colleagues, with an educational peter from [employer]. Thrive Questionnaire Date Thrive assessed: 09/22/23 I am a: Patient What is your living situation today?: I have a steady place to live Within the past 12 months, did the food you bought not last and you didn't have the money to get more?: Never true Within the past 12 months, did you worry whether your food would run out before you got money to buy more?: Never true Do you have trouble paying for medicines?: No Do you have trouble getting transportation to medical appointments?: No Do you have trouble paying your heating and electricity bill?: No Do you have trouble taking care of your child, family member or friend?: No Do you have trouble with day-to-day activities such as bathing, preparing meals, shopping, managing finances, etc.?: No Are you currently unemployed and looking for a job?: No Are you interested in more education?: No Please select the resources that you would like help with: None Currently or been in a relationship where the following occur: no concerns reported THRIVE Score: 0 GRAYSON-7 AMB Questionnaire GRAYSON-7 Date GRAYSON - 7 assessed: 09/22/23 Feeling nervous, anxious, or on edge: 2 = More than half the days Not being able to stop or control worryin = More than half the days Worrying too much about different things: 2 = More than half the days Trouble relaxin = More than half the days Being so restless that it is hard to sit still: 1 = Several days Becoming easily annoyed or irritable: 2 = More than half the days Feeling afraid as if something awful might happen: 2 = More than half the days Total GRAYSON-7 score (0-4 normal; 5-9 mild; 10-14 moderate; 15-21 severe): 13 Source: Developed by Drs. Bo Can, Braulio Steele and colleagues, with an educational peter from [employer]. GRAYSON-7 Assessment Billing GRAYSON-7 Assessment Tool: GRAYSON-7 Assessment 90691 Review of Systems Const Denies chills and Denies fever(s) ENT Denies epistaxis and Denies nasal discharge Card Denies chest pain Resp Denies chest congestion, Denies cough and Denies hemoptysis GI Denies diarrhea and Denies nausea Skin/Breast Denies rash Neuro Reports no additional complaints Psych Reports no additional complaints Endo Reports no additional complaints Physical exam (Primary Care) Vital Signs: Last Vital Signs Pulse 72 09/22/23 09:25 BP 126/72 09/22/23 09:25 Pulse Ox 96 09/22/23 09:25 Oxygen Delivery Method Room Air 09/22/23 09:25 BMI result Body Mass Index 33.6 Tobacco/Smoking Status: Tobacco use Status Tobacco use date assessed 09/22/23 09/22/23 09:28 Patient Tobacco Use Status Former Tobacco user 09/22/23 09:28 e-Cigarette/Vaping Use Never Used 09/22/23 09:28 PHQ-9: PHQ-9 Score PHQ-9: Total score 10 09/22/23 10:07 Depression Screening Interpretation: Positive Depression Screening Follow-up: Existing condition and In treatment Thrive Assessment: Date of Thrive Assessment Date Thrive assessed 09/22/23 09/22/23 10:07 Currently or been in a relationship where the following occur: no concerns reported Const General: cooperative, comfortable and no acute distress Orientation/consciousness: patient oriented x3 HENMT Head: Yes normocephalic Eyes General: appearance normal, both eyes and all related structures Neck Neck: Yes supple Resp Effort & Inspection: normal respiratory effort, no cough and no stridor Cardio Rhythm: regular rhythm Heart sounds: S1 normal heart sound present and S2 normal heart sound present Skin General skin exam: turgor normal Neuro General: patient oriented x3, tone normal and moves all extremities Extrem Hand/finger images: 2 1. Swelling compared to right, able to all fingers, discomfort with out stretch, no skin changes, sensory intact, pulse intact Right lower extremity: no edema Left lower extremity: no edema Assessment and Plan Assessment & Plan (1) Diabetes 1.5, managed as type 2: Code(s): E13.9 - Other specified diabetes mellitus without complications (2) Major depression, recurrent: Code(s): F33.9 - Major depressive disorder, recurrent, unspecified Qualifiers: Active/Remission status: currently active Major depression episode severity: moderate Qualified Code(s): F33.1 - Major depressive disorder, recurrent, moderate (3) Left hand pain: Code(s): M79.642 - Pain in left hand (4) Hypertension, essential: Code(s): I10 - Essential (primary) hypertension (5) Anxiety, generalized: Code(s): F41.1 - Generalized anxiety disorder (6) Lipid disorder: Code(s): E78.9 - Disorder of lipoprotein metabolism, unspecified (7) LFT elevation: Code(s): R79.89 - Other specified abnormal findings of blood chemistry (8) Neuropathy, peroneal nerve: Code(s): G57.30 - Lesion of lateral popliteal nerve, unspecified lower limb Qualifiers: Laterality: unspecified laterality Qualified Code(s): G57.30 - Lesion of lateral popliteal nerve, unspecified lower limb (9) Obesity due to excess calories: Code(s): E66.09 - Other obesity due to excess calories Qualifiers: Body mass index: BMI 33.0-33.9 Obesity classification: adult class 1 (BMI 30 - 34.9) Serious obesity comorbidity presence: with serious comorbidity Qualified Code(s): E66.09 - Other obesity due to excess calories; Z68.33 - Body mass index [BMI] 33.0-33.9, adult Plan Patient is a 63-year-old female came in today for her regular follow-up appointment She could not tolerate Lexapro, patient says that it made her dizzy She says that more than depression she is feeling anxious Patient have peroneal neuropathy she is diabetic, I am starting her on gabapentin 100 mg to be taken at night And if patient can tolerate medication she may start taking 1 in the morning, I feel that it will help her in number of face including anxiety She is complaining of pain left hand palmar aspect for the past 2 months, patient says that she has not sure what is causing the pain But she feels it when she out stretch her hand , on examination she does have a slight swelling left side compared to right I have ordered x-ray offer hand at she will see a hand specialist She is to give me a call in 2 weeks to update me on this medication Hypertension: Blood pressure stable with lisinopril 20 mg Continue lovastatin 40 mg for lipid control Diabetes mellitus: Hemoglobin A1c is stable Patient is on glipizide 10 mg b.i.d. and Jardiance 25 mg daily, and glipizide to 5 mg b.i.d. BMI is elevated need to lose weight LFTs and microalbumin is stable Follow-up 3 months Orders: Orders 2 Comprehensive Met. Panel Today E13.9 - Other specified diabetes mellitus without complications, E66.09 - Other obesity due to excess calories, E78.9 - Disorder of lipoprotein metabolism, unspecified, F33.9 - Major depressive disorder, recurrent, unspecified, F41.1 - Generalized anxiety disorder, G57.30 - Lesion of lateral popliteal nerve, unspecified lower limb, I10 - Essential (primary) hypertension, M54.12 - Radiculopathy, cervical region, R79.89 - Other specified abnormal findings of blood chemistry Microalbumin, Random (w Creat) Today E13.9 - Other specified diabetes mellitus without complications, E66.09 - Other obesity due to excess calories, E78.9 - Disorder of lipoprotein metabolism, unspecified, F33.9 - Major depressive disorder, recurrent, unspecified, F41.1 - Generalized anxiety disorder, G57.30 - Lesion of lateral popliteal nerve, unspecified lower limb, I10 - Essential (primary) hypertension, M54.12 - Radiculopathy, cervical region, R79.89 - Other specified abnormal findings of blood chemistry XR hand LT 2V Today M79.642 - Pain in left hand Hemoglobin A1c Today E13.9 - Other specified diabetes mellitus without complications, E66.09 - Other obesity due to excess calories, E78.9 - Disorder of lipoprotein metabolism, unspecified, F33.9 - Major depressive disorder, recurrent, unspecified, F41.1 - Generalized anxiety disorder, G57.30 - Lesion of lateral popliteal nerve, unspecified lower limb, I10 - Essential (primary) hypertension, M54.12 - Radiculopathy, cervical region, R79.89 - Other specified abnormal findings of blood chemistry Complete Blood Count Auto Diff Today E13.9 - Other specified diabetes mellitus without complications, E66.09 - Other obesity due to excess calories, E78.9 - Disorder of lipoprotein metabolism, unspecified, F33.9 - Major depressive disorder, recurrent, unspecified, F41.1 - Generalized anxiety disorder, G57.30 - Lesion of lateral popliteal nerve, unspecified lower limb, I10 - Essential (primary) hypertension, M54.12 - Radiculopathy, cervical region, R79.89 - Other specified abnormal findings of blood chemistry Referrals 2 Hand Surgery Referral M79.642 - Pain in left hand Medications: New 2 gabapentin 100 mg PO BEDTIME 30 caps 0RF Discontinued 2 escitalopram oxalate (Lexapro) Discontinued Reason: Doctor's Order 10 mg PO DAILY 90 tabs 0RF Coding Level of Care Code Est Pt Level 4 (31999) Diagnoses Diabetes 1.5, managed as type 2 E13.9 Moderate episode of recurrent major depressive disorder F33.1 Active/Remission status: currently active Major depression episode severity: moderate Left hand pain M79.642 Hypertension, essential I10 Anxiety, generalized F41.1 Lipid disorder E78.9 LFT elevation R79.89 Peroneal neuropathy, unspecified laterality G57.30 Laterality: unspecified laterality Class 1 obesity due to excess calories with serious comorbidity and body mass index (BMI) of 33.0 to 33.9 in adult E66.09; Z68.33 Body mass index: BMI 33.0-33.9 Obesity classification: adult class 1 (BMI 30 - 34.9) Serious obesity comorbidity presence: with serious comorbidity Additional Codes GRAYSON-7 Assessment Billing - GRAYSON-7 Assessment Tool: GRAYSON-7 Assessment [id number] ([id number])
== END 2023-09-22 10:02 | disposition home or self-care (01) ==
PROVIDERS: PCP Internal Medicine; Visit Provider Internal Medicine
DX: E13.9 Other specified diabetes mellitus without complications (principal); F33.1 Major depressive disorder, recurrent, moderate; M79.642 Pain in left hand; I10 Essential (primary) hypertension; F41.1 Generalized anxiety disorder; E78.9 Disorder of lipoprotein metabolism, unspecified; R79.89 Other specified abnormal findings of blood chemistry; G57.30 Lesion of lateral popliteal nerve, unspecified lower limb; E66.09 Other obesity due to excess calories; Z68.33 Body mass index [BMI] 33.0-33.9, adult
CPT/HCPCS: 99214

== ENCOUNTER 2023-09-22 10:03 | Outpatient (REF) | payer BC, SELFPAY ==
--- NOTE | ~2023-09-22 | XR_ITS ---
EXAMINATION: XR HAND, LEFT CLINICAL INFORMATION: Pain in left hand. COMPARISON: 06/28/2010 TECHNIQUE: PA, lateral, and oblique views of the left hand. FINDINGS: Advanced degenerative changes in the first carpometacarpal joint with joint space narrowing and hypertrophic change. Moderate osteoarthritic changes in scattered IP joints. 4 mm calcification in the soft tissues along the radial aspect of the carpi. Tiny calcification along the radial aspect of the trapezium. XR/XR hand LT 2V IMPRESSION: 1. Advanced degenerative changes in the first carpometacarpal joint. 2. Moderate osteoarthritic changes in scattered IP joints. 3. A 4 mm calcification in the soft tissues along the radial aspect of the carpi. Tiny calcification along the radial aspect of the trapezium. Recommend follow-up imaging in 10-14 days if fracture is suspected.
[2023-09-22 13:21] LABS: MANUAL DIFF FLAG NO
[2023-09-22 13:33] LABS: Basophils Absolute Auto 0.1 X10*3/uL (0.0-0.2); Basophils Percent Auto 1.4 % (0-2); Eosinophils Absolute Auto 0.3 X10*3/uL (0.0-0.4); Hematocrit 48.1 % (37.0-47.0); Hemoglobin 15.6 g/dl (12.0-16.0); Imm Gran Abs Auto 0.03 X10*3/uL (0.00-0.03); Imm Gran Pct Auto 0.4 % (0.0-0.4); Lymphocytes Absolute Auto 2.7 X10*3/uL (1.2-4.9); Lymphocytes Percent Auto 38.8 % (20-40); Mean Corpuscular HGB Conc 32.4 g/dl (31.0-35.0); Mean Corpuscular Hemoglobin 29.5 pg (27.0-33.0); Mean Corpuscular Volume 91.1 fL (80.0-98.0); Mean Platelet Volume 10.1 fL (9.4-12.3); Monocytes Absolute Auto 0.5 X10*3/uL (0.1-1.2); Monocytes Percent Auto 7.7 % (2-11); Neutrophils Absolute Auto 3.4 x10*3/uL (2.0-8.3); Neutrophils Percent Auto 47.7 % (45-73); Platelet Count 356 X10*3/uL (160-400); Red Blood Count 5.28 X10*6/uL (4.20-5.50); Red Cell Distribution Width 12.9 % (11.0-16.0)
[2023-09-22 13:39] LABS: Estimated Average Glucose 143 mg/dL; Hemoglobin A1c % 6.6 % (<6.0)
[2023-09-22 13:49] LABS: Alanine Aminotransferase 19 U/L (0-31); Albumin Level 4.6 g/dL (3.5-5.0); Alkaline Phosphatase 73 U/L (39-117); Anion Gap 15 (12-20); Aspartate Amino Transferase 19 U/L (5-31); Bilirubin Total 0.6 mg/dL (0.0-1.0); Blood Urea Nitrogen 14 mg/dL (9-16); Calcium 10.1 mg/dL (8.4-10.2); Carbon Dioxide 27 mmol/L (22-29); Chloride 102 mmol/L (96-108); Estimated Glomerular Filt Rate > 60; Glucose Random 105 mg/dL (60-115); Potassium 4.3 mmol/L (3.3-5.1); Sodium 140 mmol/L (135-145); Total Protein 8.6 g/dL (6.5-8.0)
[2023-09-22 16:45] LABS: Creatinine Urine 94.48 mg/dL; Microalbum/Creatinine Ratio Ur 22.2 ug/mg cr (<30)
== END 2023-09-22 10:04 | disposition home or self-care (01) ==
LOC: HO.HMGCX 10:03
PROVIDERS: PCP Internal Medicine; Visit Provider Internal Medicine
DX: M79.642 Pain in left hand (principal); F33.9 Major depressive disorder, recurrent, unspecified; R79.89 Other specified abnormal findings of blood chemistry; E66.09 Other obesity due to excess calories; M54.12 Radiculopathy, cervical region; E78.9 Disorder of lipoprotein metabolism, unspecified; I10 Essential (primary) hypertension; E13.9 Other specified diabetes mellitus without complications; F41.1 Generalized anxiety disorder
CPT/HCPCS: 36415; 73120; 80053; 82043; 82570; 83036; 85025

== ENCOUNTER 2023-10-27 10:18 | Outpatient (AMB) | payer BC, SELFPAY ==
--- NOTE | 2023-10-27 10:24 | MHC.OFFVIS ---
Intake Vital Signs 10/27/23 10:25 Height 5 ft Weight 172 lb BMI 33.6 Intake Visit Reasons: newprob- Pain in left hand Intake Note: Diana 63 yr old female who is ambidextrous, presents today for a new problem visit for her left hand pain. States pain is mainly on all her MCP on volar aspect of hand. Pain started about 1 month ago and has worsen with a burning sensation. No injury she can recall. At times she has numbness and tingling. No EMG for upper extremity done. Hx of O.A. XRays done on 09/22/23. Allergies No Known Allergies [No Known Allergies*] Allergy (Verified 10/27/23 10:28) HPI newprob- Pain in left hand HPI Details Diana is a 63 year old right hand dominant Diabetic woman who presents with complaints of left hand pain. She complains of a burning pain in her left hand, for ~1 month now. She is also concerned that her hand is swollen all the time . She denies any locking or catching but she says she has a painful burning sensation over the A1 pulleys of her fingers, particularly when her hand is held open. She also complains of occasional pain at the base of her thumb, worse with pinching or gripping activities. She reports only occasional numbness in her fingers, but says this is not very bothersome. She denies having a NCS done. She says her Diabetes is well controlled. She has left peroneal neuropathy, and normal sensation in her right leg. 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 Cognitive needs: No Hearing needs: No Vision needs: Yes Female Reproductive History Menstrual Age of Menarche: 13 Review of Systems Const All systems reviewed & are unremarkable except as noted in HPI and below Physical Exam Vital Signs: BMI result Body Mass Index 33.6 Const General: cooperative, healthy appearing and no acute distress Orientation/consciousness: patient oriented x3 HEENT Head: Yes normocephalic and Yes atraumatic Eyes EOM: EOMs intact bilaterally Resp Effort & Inspection: normal respiratory effort and able to speak in complete sentences Cardio Jugular venous distension: no JVD Skin General skin exam: turgor normal Rashes: no rashes Neuro General: patient oriented x3 Extrem Other: Evaluation of Left Upper Extremity: The patient is alert, oriented, and in no acute distress Neuro: Median, Ulnar, Radial nerves motor and sensory intact and sensation is normal to the tips of all digits No thenar or intrinsic wasting. Vascular: Cap refill brisk ROM: She can make a fist and extend all her digits Skin: No lacerations or abrasions. General: No Ecchymosis. No Erythema or evidence of infection. + shoulder sign Tender over the basal joint No tenderness over the a1 pulleys No locking or catching with flexion extension Finger MCP joints completely non-tender, both dorsally & volarly. Full active range of motion Radiographs: 3 views of the left hand from 09/22/23 were reviewed by me today in clinic. They show no fractures or dislocations. She has some basal joint osteoarthritis with joint space narrowing, subchondral sclerosis, and early osteophyte formation. Perhaps some mild joint space narrowing in the MCP and IP joints of the fingers, but no significant evidence of arthritic changes in these joints. Psych Appearance: grossly normal Affect: normal affect Attitude: cooperative Assessment & Plan Assessment & Plan (1) Osteoarthritis of carpometacarpal joint of left thumb: Code(s): M18.12 - Unilateral primary osteoarthritis of first carpometacarpal joint, left hand (2) Diabetes 1.5, managed as type 2: Code(s): E13.9 - Other specified diabetes mellitus without complications Plan Assessment & Plan: 1. Left Basal joint osteoarthritis I educated her about this condition I discussed treatment options I recommend activity modification & bracing She was fitted for a comfort cool brace to wear with daily activity I discussed activity modification, she should limit or avoid any heavy or repetitive pinching or gripping activities If her symptoms persist or worsen we may consider a steroid injection 2. Left hand burning sensation & perceived puffiness over the a1 pulleys of the fingers Of the index, middle, ring, and small fingers Etiology unclear No a1 manisha tenderness, no locking or catching, and no MCP joint tenderness Full ROM No treatment indicated at this time him for this problem. She knows to contact us if she has any changes or worsening in symptoms. Follow up p.r.n. Scribed for Tiff Ellison MD by Jagdish Handley, medical record coder, on 10/27/23 at 10:45 AM, EST. Coding Level of Care Code New Pt Level 3 (15801) Diagnoses Osteoarthritis of carpometacarpal joint of left thumb M18.12 Diabetes 1.5, managed as type 2 E13.9
[2023-10-27 10:25] VITALS: BMI 33.6
== END 2023-10-27 10:56 | disposition home or self-care (01) ==
PROVIDERS: PCP Internal Medicine; Visit Provider Orthopaedic Surgery
DX: M18.12 Unilateral primary osteoarthritis of first carpometacarpal joint, left hand (principal); E13.9 Other specified diabetes mellitus without complications
CPT/HCPCS: 99203

== ENCOUNTER → 2023-10-27 10:18 | Outpatient (BNVA) | payer BC, SELFPAY | PROVIDERS: PCP Internal Medicine; Visit Provider Orthopaedic Surgery ==

== ENCOUNTER 2023-12-23 12:40 | Outpatient (AMB) | payer BC, SELFPAY ==
--- NOTE | 2023-12-23 13:00 | MHC.PC.OV ---
Vital Signs 12/23/23 13:02 Height 5 ft Weight 168 lb BMI 32.8 BP 106/68 Blood Pressure Location Rt brachial Position Sitting Pulse 71 Pulse Source Pulse Oximeter Pulse Oximetry (%) 97 Oxygen Delivery Method Room Air Intake Visit Reasons: 3 month f/u Allergies No Known Allergies [No Known Allergies*] Allergy (Verified 12/23/23 13:02) Medication List - Last Reconciled 12/23/23 by Bk Ramirez MD blood sugar diagnostic qd prn blood sugar diagnostic (Accu-Chek Guide test strips) Accu-chek guide me test strips. Patient to check blood sugars 3 times every other day blood-glucose meter As directed blood-glucose sensor ([employer] Chad 3 Sensor device) As directed calcium carbonate-vitamin D3 500 mg-5 mcg (200 unit) (Calcium 500 + D) 1 tab PO DAILY glipizide 5 mg PO BID 90 days Jardiance (empagliflozin) 25 mg PO DAILY 90 days NS lancets qd prn lisinopril 20 mg PO DAILY 90 days lovastatin 40 mg PO DAILY Tobacco use date assessed: 09/22/23 Dental Screening Dental Screen Date: 09/22/23 HPI 3 month f/u HPI Details Patient is a 63-year-old female came in today for her regular follow-up appointment Patient has been having pain left side of upper back neck area nonradiating On examination it seems as if she has developed a strain of trapezius muscle 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 I have sent naproxen 500 mg she may take that up to 2 times a day 12 hours apart with food She is also started to have pain right shoulder, patient has had cortisone injection in the past a year ago which has helped her She says that she will call Orthopedic and book another appointment Anxiety: She could not tolerate Lexapro, patient says that it made her dizzy She says that more than depression she is feeling anxious peroneal neuropathy, she is diabetic, we tried gabapentin which started causing headache so we had to stop that Patient is wearing splint for left hand pain, she says that at time it helps but then at times it makes it worse Hypertension: Blood pressure is running low with lisinopril 20 mg I am reducing dose to 10 mg Continue lovastatin 40 mg for lipid control Diabetes mellitus: Hemoglobin A1c is stable Patient is on glipizide 10 mg b.i.d. and Jardiance 25 mg daily, and glipizide to 5 mg b.i.d. 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 How often do you have a drink containing alcohol?: Monthly or less 2. How many drinks containing alcohol do you have on a typical day when you are drinking?: 1 or 2 3. How often do you have six or more drinks on one occasion?: Never Total Score: 1 GRAYSON-7 AMB Questionnaire GRAYSON-7 Date GRAYSON - 7 assessed: 09/22/23 Feeling nervous, anxious, or on edge: 2 = More than half the days Not being able to stop or control worryin = More than half the days Worrying too much about different things: 1 = Several days Trouble relaxin = Several days Being so restless that it is hard to sit still: 1 = Several days Becoming easily annoyed or irritable: 2 = More than half the days Feeling afraid as if something awful might happen: 1 = Several days Total GRAYSON-7 score (0-4 normal; 5-9 mild; 10-14 moderate; 15-21 severe): 10 Source: Developed by Drs. Bo Can, Ermelinda Franco, Braulio Jones and colleagues, with an educational peter from [employer]. Review of Systems Const Denies chills and Denies fever(s) ENT Denies epistaxis and Denies nasal discharge Card Denies chest pain Resp Denies chest congestion, Denies cough and Denies hemoptysis GI Denies diarrhea and Denies nausea Skin/Breast Denies rash Neuro Reports no additional complaints Psych Reports no additional complaints Endo Reports no additional complaints Physical exam (Primary Care) Vital Signs: Last Vital Signs Pulse 71 12/23/23 13:02 BP 106/68 12/23/23 13:02 Pulse Ox 97 12/23/23 13:02 Oxygen Delivery Method Room Air 12/23/23 13:02 BMI result Body Mass Index 32.8 Tobacco/Smoking Status: Tobacco use Status Tobacco use date assessed 09/22/23 12/23/23 13:02 Patient Tobacco Use Status Former Tobacco user 12/23/23 13:02 e-Cigarette/Vaping Use Never Used 12/23/23 13:02 Thrive Assessment: Date of Thrive Assessment Date Thrive assessed 09/22/23 12/23/23 13:02 Const General: cooperative, comfortable and no acute distress Orientation/consciousness: patient oriented x3 HENMT Head: Yes normocephalic Eyes General: appearance normal, both eyes and all related structures Neck Neck: Yes supple Resp Effort & Inspection: normal respiratory effort, no cough and no stridor Cardio Rhythm: regular rhythm Heart sounds: S1 normal heart sound present and S2 normal heart sound present Back/Spine/Pelvis Back/spine/pelvis image: 1. Site of pain Skin General skin exam: turgor normal Neuro General: patient oriented x3, tone normal and moves all extremities Extrem Right lower extremity: no edema Left lower extremity: no edema Assessment and Plan Assessment & Plan (1) Diabetes 1.5, managed as type 2: Code(s): E13.9 - Other specified diabetes mellitus without complications (2) Hypertension, essential: Code(s): I10 - Essential (primary) hypertension (3) Lipid disorder: Code(s): E78.9 - Disorder of lipoprotein metabolism, unspecified (4) Arthrosis: Comment: Celebrex 200 mg once a day started Code(s): M19.90 - Unspecified osteoarthritis, unspecified site (5) Neuropathy, peroneal nerve: Code(s): G57.30 - Lesion of lateral popliteal nerve, unspecified lower limb Qualifiers: Laterality: unspecified laterality Qualified Code(s): G57.30 - Lesion of lateral popliteal nerve, unspecified lower limb (6) Shoulder pain, right: Code(s): M25.511 - Pain in right shoulder Qualifiers: Chronicity: chronic Qualified Code(s): M25.511 - Pain in right shoulder; G89.29 - Other chronic pain (7) Strain of left trapezius muscle: Code(s): S46.812A - Strain of other muscles, fascia and tendons at shoulder and upper arm level, left arm, initial encounter Qualifiers: Encounter type: initial encounter Qualified Code(s): S46.812A - Strain of other muscles, fascia and tendons at shoulder and upper arm level, left arm, initial encounter (8) LFT elevation: Code(s): R79.89 - Other specified abnormal findings of blood chemistry (9) Obesity due to excess calories: Code(s): E66.09 - Other obesity due to excess calories Qualifiers: Body mass index: BMI 33.0-33.9 Obesity classification: adult class 1 (BMI 30 - 34.9) Serious obesity comorbidity presence: with serious comorbidity Qualified Code(s): E66.09 - Other obesity due to excess calories; Z68.33 - Body mass index [BMI] 33.0-33.9, adult (10) Major depression, recurrent: Code(s): F33.9 - Major depressive disorder, recurrent, unspecified Qualifiers: Active/Remission status: currently active Major depression episode severity: moderate Qualified Code(s): F33.1 - Major depressive disorder, recurrent, moderate (11) Left hand pain: Code(s): M79.642 - Pain in left hand (12) Anxiety, generalized: Code(s): F41.1 - Generalized anxiety disorder Plan Patient is a 63-year-old female came in today for her regular follow-up appointment Patient has been having pain left side of upper back neck area nonradiating On examination it seems as if she has developed a strain of trapezius muscle 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 I have sent naproxen 500 mg she may take that up to 2 times a day 12 hours apart with food She is also started to have pain right shoulder, patient has had cortisone injection in the past a year ago which has helped her She says that she will call Orthopedic and book another appointment Anxiety: She could not tolerate Lexapro, patient says that it made her dizzy She says that more than depression she is feeling anxious peroneal neuropathy, she is diabetic, we tried gabapentin which started causing headache so we had to stop that Patient is wearing splint for left hand pain, she says that at time it helps but then at times it makes it worse Hypertension: Blood pressure is running low with lisinopril 20 mg I am reducing dose to 10 mg Continue lovastatin 40 mg for lipid control Diabetes mellitus: Hemoglobin A1c is stable Patient is on glipizide 10 mg b.i.d. and Jardiance 25 mg daily, and glipizide to 5 mg b.i.d. BMI is elevated need to lose weight LFTs and microalbumin is stable Follow-up 3 months Orders: Orders Hemoglobin A1c Today E13.9 - Other specified diabetes mellitus without complications, E66.09 - Other obesity due to excess calories, E78.9 - Disorder of lipoprotein metabolism, unspecified, G57.30 - Lesion of lateral popliteal nerve, unspecified lower limb, I10 - Essential (primary) hypertension, M19.90 - Unspecified osteoarthritis, unspecified site, M25.511 - Pain in right shoulder, R79.89 - Other specified abnormal findings of blood chemistry, S46.812A - Strain of other muscles, fascia and tendons at shoulder and upper arm level, left arm, initial encounter, Z68.33 - Body mass index [BMI] 33.0-33.9, adult XR cervical spine 2V Today M54.2 - Cervicalgia Complete Blood Count Auto Diff Today E13.9 - Other specified diabetes mellitus without complications, E66.09 - Other obesity due to excess calories, E78.9 - Disorder of lipoprotein metabolism, unspecified, G57.30 - Lesion of lateral popliteal nerve, unspecified lower limb, I10 - Essential (primary) hypertension, M19.90 - Unspecified osteoarthritis, unspecified site, M25.511 - Pain in right shoulder, R79.89 - Other specified abnormal findings of blood chemistry, S46.812A - Strain of other muscles, fascia and tendons at shoulder and upper arm level, left arm, initial encounter, Z68.33 - Body mass index [BMI] 33.0-33.9, adult Comprehensive Met. Panel Today E13.9 - Other specified diabetes mellitus without complications, E66.09 - Other obesity due to excess calories, E78.9 - Disorder of lipoprotein metabolism, unspecified, G57.30 - Lesion of lateral popliteal nerve, unspecified lower limb, I10 - Essential (primary) hypertension, M19.90 - Unspecified osteoarthritis, unspecified site, M25.511 - Pain in right shoulder, R79.89 - Other specified abnormal findings of blood chemistry, S46.812A - Strain of other muscles, fascia and tendons at shoulder and upper arm level, left arm, initial encounter, Z68.33 - Body mass index [BMI] 33.0-33.9, adult Medications: New naproxen 500 mg PO BID PRN 60 tabs 1RF pain Changed From lisinopril 20 mg PO DAILY 90 days 90 tabs 0RF I10 - Essential (primary) hypertension To lisinopril 10 mg PO DAILY 90 tabs 0RF 90 days I10 - Essential (primary) hypertension Coding Level of Care Code Est Pt Level 4 (44719) Complex EM visit Add On G2211 Diagnoses Diabetes 1.5, managed as type 2 E13.9 Hypertension, essential I10 Lipid disorder E78.9 Arthrosis M19.90 Peroneal neuropathy, unspecified laterality G57.30 Laterality: unspecified laterality Chronic right shoulder pain M25.511; G89.29 Chronicity: chronic Strain of left trapezius muscle, initial encounter S46.812A Encounter type: initial encounter LFT elevation R79.89 Class 1 obesity due to excess calories with serious comorbidity and body mass index (BMI) of 33.0 to 33.9 in adult E66.09; Z68.33 Body mass index: BMI 33.0-33.9 Obesity classification: adult class 1 (BMI 30 - 34.9) Serious obesity comorbidity presence: with serious comorbidity Moderate episode of recurrent major depressive disorder F33.1 Active/Remission status: currently active Major depression episode severity: moderate Left hand pain M79.642 Anxiety, generalized F41.1
[2023-12-23 13:02] VITALS: BP 106/68; PULSE 71; O2SAT 97; BMI 32.8
== END 2023-12-23 15:41 | disposition home or self-care (01) ==
PROVIDERS: PCP Internal Medicine; Visit Provider Internal Medicine
DX: I10 Essential (primary) hypertension (principal); E13.9 Other specified diabetes mellitus without complications; F33.1 Major depressive disorder, recurrent, moderate; E78.9 Disorder of lipoprotein metabolism, unspecified; M19.90 Unspecified osteoarthritis, unspecified site; G57.30 Lesion of lateral popliteal nerve, unspecified lower limb; M25.511 Pain in right shoulder; G89.29 Other chronic pain; S46.812A Strain of other muscles, fascia and tendons at shoulder and upper arm level, left arm, initial encounter; R79.89 Other specified abnormal findings of blood chemistry; E66.09 Other obesity due to excess calories; Z68.33 Body mass index [BMI] 33.0-33.9, adult
CPT/HCPCS: 99214

== ENCOUNTER 2024-04-02 09:30 | Outpatient (REF) | payer BC, SELFPAY ==
--- NOTE | ~2024-04-02 | XR_ITS ---
EXAMINATION: CERVICAL SPINE 2 VIEWS CLINICAL INFORMATION: Cervicalgia. COMPARISON: None. TECHNIQUE: AP and lateral views of the cervical spine are submitted. FINDINGS: Vertebral body heights and alignment are normal. The disc spaces are well-maintained. No acute fracture or spondylolisthesis is seen. There is multi-level cervical endplate and facet arthropathy. The dens and C7-T1 interface are normal. The posterior elements are intact. There is no prevertebral soft tissue swelling. XR/XR cervical spine 2V IMPRESSION: 1. No acute fracture or spondylolisthesis is seen. 2. The cervical disc spaces are well-maintained. 3. There is multi-level cervical endplate and facet arthropathy. Electronically signed by: Dayne Rao MD 04/21/2024 04:34 PM EDT RP
[2024-04-02 11:09] LABS: MANUAL DIFF FLAG NO
[2024-04-02 11:19] LABS: Basophils Absolute Auto 0.1 X10*3/uL (0.0-0.2); Basophils Percent Auto 1.3 % (0-2); Eosinophils Absolute Auto 0.3 X10*3/uL (0.0-0.4); Eosinophils Percent Auto 5.2 % (0-4); Hematocrit 46.9 % (37.0-47.0); Imm Gran Abs Auto 0.03 X10*3/uL (0.00-0.03); Imm Gran Pct Auto 0.5 % (0.0-0.4); Lymphocytes Absolute Auto 2.5 X10*3/uL (1.2-4.9); Lymphocytes Percent Auto 39.9 % (20-40); Mean Corpuscular Hemoglobin 29.2 pg (27.0-33.0); Mean Corpuscular Volume 91.2 fL (80.0-98.0); Mean Platelet Volume 10.4 fL (9.4-12.3); Monocytes Absolute Auto 0.4 X10*3/uL (0.1-1.2); Monocytes Percent Auto 6.8 % (2-11); Neutrophils Absolute Auto 2.9 x10*3/uL (2.0-8.3); Neutrophils Percent Auto 46.3 % (45-73); Platelet Count 303 X10*3/uL (160-400); Red Blood Count 5.14 X10*6/uL (4.20-5.50); Red Cell Distribution Width 13.6 % (11.0-16.0); White Blood Count 6.3 X10*3/uL (4.8-10.8)
[2024-04-02 11:34] LABS: Alanine Aminotransferase 17 U/L (0-31); Albumin Level 4.7 g/dL (3.5-5.0); Alkaline Phosphatase 62 U/L (39-117); Anion Gap 13 (12-20); Aspartate Amino Transferase 18 U/L (5-31); Bilirubin Total 0.8 mg/dL (0.0-1.0); Blood Urea Nitrogen 16 mg/dL (9-16); Calcium 10.5 mg/dL (8.4-10.2); Carbon Dioxide 25 mmol/L (22-29); Chloride 107 mmol/L (96-108); Estimated Glomerular Filt Rate > 60; Glucose Random 121 mg/dL (60-115); Potassium 4.3 mmol/L (3.3-5.1); Sodium 141 mmol/L (135-145)
[2024-04-02 11:44] LABS: Estimated Average Glucose 157 mg/dL; Hemoglobin A1c % 7.1 % (<6.0)
== END 2024-04-02 09:31 | disposition home or self-care (01) ==
LOC: HO.HMGCX 09:30
PROVIDERS: PCP Internal Medicine; Visit Provider Internal Medicine
DX: M54.2 Cervicalgia (principal); E13.9 Other specified diabetes mellitus without complications; I10 Essential (primary) hypertension; E78.9 Disorder of lipoprotein metabolism, unspecified; M19.90 Unspecified osteoarthritis, unspecified site; G57.30 Lesion of lateral popliteal nerve, unspecified lower limb; E66.09 Other obesity due to excess calories; Z68.33 Body mass index [BMI] 33.0-33.9, adult; R79.89 Other specified abnormal findings of blood chemistry; S46.812A Strain of other muscles, fascia and tendons at shoulder and upper arm level, left arm, initial encounter; M25.511 Pain in right shoulder
CPT/HCPCS: 36415; 72040; 80053; 83036; 85025

== ENCOUNTER 2024-04-05 13:56 | Outpatient (AMB) | payer BC, SELFPAY ==
[2024-04-05 14:10] VITALS: BP 124/76; PULSE 68; O2SAT 99; BMI 32.8
--- NOTE | 2024-04-05 14:10 | A.OFFPC_ITS ---
Vital Signs 04/05/24 14:10 Height 5 ft Weight 168 lb 2 oz BMI 32.8 BP 124/76 Blood Pressure Location Rt brachial Position Sitting Pulse 68 Pulse Source Pulse Oximeter Pulse Oximetry (%) 99 Oxygen Delivery Method Room Air Intake Visit Reasons: Annual PE - see comments Allergies No Known Allergies [No Known Allergies*] Allergy (Verified 04/05/24 14:13) Medication List - Last Reconciled 04/05/24 by Bk Ramirez MD blood sugar diagnostic qd prn blood sugar diagnostic (Accu-Chek Guide test strips) Accu-chek guide me test strips. Patient to check blood sugars 3 times every other day blood-glucose meter As directed blood-glucose sensor ([employer] Chad 3 Sensor device) As directed calcium carbonate-vitamin D3 500 mg-5 mcg (200 unit) (Calcium 500 + D) 1 tab PO DAILY glipizide 5 mg PO BID 90 days Jardiance (empagliflozin) 25 mg PO DAILY 90 days NS lancets qd prn lisinopril 10 mg PO DAILY 90 days lovastatin 40 mg PO DAILY naproxen 500 mg PO BID PRN Tobacco use date assessed: 04/05/24 Dental Screening Dental Screen Date: 04/05/24 Did you have a dental visit in the last 12 months?: Yes Did you have a dental problem in the last 6 months where you did not have access to dental care?: No Was dental information given to patient?: Patient has dentist HPI Annual PE - see comments HPI Details Patient is 63-year-old female came in today for physical examination Continued to have pain in her neck radiating to left shoulder She had an x-ray done 02 of April which is not read yet Meanwhile I am sending tramadol for the night and prednisone for few days to see if that helps her improve the pain She is having difficulty sleeping at night Patient does not want to see OBGYN Colonoscopy declined Mammogram declined Labs done recently shows hemoglobin A1c of 7.1% BMI is elevated patient is having difficulty losing weight Follow-up 3 or 4 months [facility] Medical History Vaginal atrophy Obesity Arthrosis Osteopenia Lipid disorder Hypertension, essential Diabetes 1.5, managed as type 2 Surgical History No pertinent past surgical history Social History Housing: House Alcohol intake: current Alcohol intake frequency: holidays/special occasions only Patient Tobacco Use Status: Former Tobacco user Years Smoked: 20 e-Cigarette/Vaping Use: Never Used Current occupational status: employed 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 How often do you have a drink containing alcohol?: Monthly or less 2. How many drinks containing alcohol do you have on a typical day when you are drinking?: 1 or 2 3. How often do you have six or more drinks on one occasion?: Never Total Score: 1 Score Reviewed/Action Taken: Yes GRAYSON-7 AMB Questionnaire GRAYSON-7 Date GRAYSON - 7 assessed: 09/22/23 Source: Developed by Drs. Bo Can, Ermelinda Franco, Braulio Jones and colleagues, with an educational peter from [employer]. Review of Systems Const Denies chills, Denies fever(s) and Denies headache(s) Eyes Denies blurry vision ENT Denies headache(s), Denies nasal discharge, Denies nasal obstruction, Denies odynophagia and Denies sinus pain Card Denies chest pain at rest and Denies chest pain with activity Resp Denies cough and Denies hemoptysis GI Denies diarrhea, Denies odynophagia, Denies vomiting and Denies hematemesis Reports as per HPI Musc Denies abnormal gait Skin/Breast Reports as per HPI Neuro Denies Neuro-related abnormal movements, Denies Abnormal speech present, Denies abnormal gait and Denies headache(s) Psych Denies mood swings and Denies paranoia Endo Reports as per HPI Hilario/Lymph Reports as per HPI Aller/Immun Reports as per HPI Physical exam (Primary Care) Vital Signs: Last Vital Signs Pulse 68 04/05/24 14:10 BP 124/76 04/05/24 14:10 Pulse Ox 99 04/05/24 14:10 Oxygen Delivery Method Room Air 04/05/24 14:10 BMI result Body Mass Index 32.8 Tobacco/Smoking Status: Tobacco use Status Tobacco use date assessed 04/05/24 04/05/24 14:13 Patient Tobacco Use Status Former Tobacco user 04/05/24 14:13 e-Cigarette/Vaping Use Never Used 04/05/24 14:13 Thrive Assessment: Date of Thrive Assessment Date Thrive assessed 09/22/23 04/05/24 14:13 Const General: cooperative, comfortable and no acute distress Orientation/consciousness: patient oriented x3 HENMT Head: Yes normocephalic and Yes atraumatic Eyes General: appearance normal, both eyes and all related structures Pupils: Equal, round and reactive pupils present EOM: EOMs intact bilaterally Neck Neck: Yes supple and No lymphadenopathy Thyroid: Thyroid normal Lymphatic: no lymphadenopathy noted Chest Breast/axilla palpation: normal palpation of the breasts Resp Effort & Inspection: normal respiratory effort and able to speak in complete sentences Auscultation: clear to auscultation bilaterally Cardio Heart sounds: S1 normal heart sound present and S2 normal heart sound present GI Palpation (GI): Soft to palpation and nontender Auscultation: normal bowel sounds General: Yes no CVA tenderness Back/Spine/Pelvis Back: no CVA tenderness Skin General skin exam: elasticity normal and turgor normal Neuro General: patient oriented x3 and gait normal Cranial nerves: Yes Equal, round and reactive pupils present Speech: No Abnormal speech present Coordination: tandem gait normal and Romberg test negative Extrem General: Yes normal exam except as noted and No edema Assessment and Plan Assessment & Plan (1) Encounter for general adult medical examination with abnormal findings: Code(s): Z00.01 - Encounter for general adult medical examination with abnormal findings (2) Diabetes 1.5, managed as type 2: Code(s): E13.9 - Other specified diabetes mellitus without complications (3) Cervical radiculopathy: Code(s): M54.12 - Radiculopathy, cervical region (4) Hypertension, essential: Code(s): I10 - Essential (primary) hypertension (5) Anxiety, generalized: Code(s): F41.1 - Generalized anxiety disorder (6) Lipid disorder: Code(s): E78.9 - Disorder of lipoprotein metabolism, unspecified (7) Obesity due to excess calories: Code(s): E66.09 - Other obesity due to excess calories Qualifiers: Obesity classification: adult class 1 (BMI 30 - 34.9) Serious obesity comorbidity presence: with serious comorbidity Body mass index: BMI 33.0-33.9 Qualified Code(s): E66.09 - Other obesity due to excess calories; Z68.33 - Body mass index [BMI] 33.0-33.9, adult (8) Arthrosis: Comment: Celebrex 200 mg once a day started Code(s): M19.90 - Unspecified osteoarthritis, unspecified site (9) Major depression, recurrent: Code(s): F33.9 - Major depressive disorder, recurrent, unspecified Qualifiers: Active/Remission status: currently active Major depression episode severity: moderate Qualified Code(s): F33.1 - Major depressive disorder, recurrent, moderate (10) Microalbuminuria: Code(s): R80.9 - Proteinuria, unspecified Plan Patient is 63-year-old female came in today for physical examination Continued to have pain in her neck radiating to left shoulder She had an x-ray done 02 of April which is not read yet Meanwhile I am sending tramadol for the night and prednisone for few days to see if that helps her improve the pain She is having difficulty sleeping at night Patient does not want to see OBGYN Colonoscopy declined Mammogram declined Labs done recently shows hemoglobin A1c of 7.1% BMI is elevated patient is having difficulty losing weight Follow-up 3 or 4 months Medications: New prednisone 20 mg PO DAILY 5 tabs 0RF 5 days tramadol 50 mg PO .qhs 30 tabs 0RF Neck pain 30 days Coding Level of Care Code Est Pt Level 3 (34290) Est Pt Prev Care 40-64y(05257) Diagnoses Encounter for general adult medical examination with abnormal findings Z00.01 Diabetes 1.5, managed as type 2 E13.9 Cervical radiculopathy M54.12 Hypertension, essential I10 Anxiety, generalized F41.1 Lipid disorder E78.9 Class 1 obesity due to excess calories with serious comorbidity and body mass index (BMI) of 33.0 to 33.9 in adult E66.09; Z68.33 Obesity classification: adult class 1 (BMI 30 - 34.9) Serious obesity comorbidity presence: with serious comorbidity Body mass index: BMI 33.0-33.9 Arthrosis M19.90 Moderate episode of recurrent major depressive disorder F33.1 Active/Remission status: currently active Major depression episode severity: moderate Microalbuminuria R80.9
== END 2024-04-05 14:36 | disposition home or self-care (01) ==
PROVIDERS: PCP Internal Medicine; Visit Provider Internal Medicine
DX: Z00.00 Encounter for general adult medical examination without abnormal findings (principal); E13.9 Other specified diabetes mellitus without complications; F33.1 Major depressive disorder, recurrent, moderate; M54.12 Radiculopathy, cervical region; I10 Essential (primary) hypertension; F41.1 Generalized anxiety disorder; E78.9 Disorder of lipoprotein metabolism, unspecified; E66.09 Other obesity due to excess calories; Z68.33 Body mass index [BMI] 33.0-33.9, adult; M19.90 Unspecified osteoarthritis, unspecified site; R80.9 Proteinuria, unspecified
CPT/HCPCS: 99213; 99396

== ENCOUNTER 2024-05-02 08:17 | Outpatient (AMB) | payer BC, SELFPAY ==
[2024-05-02 10:35] VITALS: BP 142/80; PULSE 78; TEMP 36.7; O2SAT 97; BMI 32.8
--- NOTE | 2024-05-02 10:35 | AM.OFFWIN_ITS ---
Intake Vital Signs 05/02/24 10:35 Height 5 ft Weight 168 lb BMI 32.8 BP 142/80 H Blood Pressure Location Rt brachial Position Sitting Pulse 78 Pulse Source Pulse Oximeter Temp 98.1 F Temp Source Oral Pulse Oximetry (%) 97 Intake Visit Reasons: EP-cold symptoms Intake Note: pt is here for c/o stuffy nose/congestion, ear pain Patient Tobacco Use Status: Former Tobacco user Allergies No Known Allergies [No Known Allergies*] Allergy (Verified 05/02/24 10:36) Do you need a note to return to daycare/school/sports/work: No HPI HPI Comments History of Present Illness Details Patient is a 63-year-old female complaining of 5 days of head congestion, stuffy nose, left ear pain and sore throat she says that the head congestion and stuffiness is worse on the left side. She denies any fevers, nausea, vomiting, diarrhea or shortness of breath. She denies a history of COPD or asthma. She states she has been taking Garrison decongestion and a.m. and p.m. but it does not seem to be helping much. She states that she so stuffy she can not sleep at night it is difficult to breathe with her nose being so stuffy. She states she did test for COVID yesterday and it came back negative. 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 Cognitive needs: No Hearing needs: No Vision needs: Yes Female Reproductive History Menstrual Age of Menarche: 13 Review of Systems Const All systems reviewed & are unremarkable except as noted in HPI and below Physical Exam Vital Signs: Last Vital Signs Temp 98.1 F 05/02/24 10:35 Pulse 78 09/30/24 10:35 BP 142/80 H 05/02/24 10:35 Pulse Ox 97 05/02/24 10:35 BMI result Body Mass Index 32.8 Const General: cooperative, healthy appearing, comfortable and no acute distress Orientation/consciousness: patient oriented x3 Limitations: no limitations HEENT Head: Yes normal to inspection Ears: hearing grossly normal bilaterally, external ears normal and TM's normal bilaterally General nose exam: Normal external nose present, Normal nares present and No nasal discharge present Face and sinus: Yes normal facial exam and Yes sinus tenderness Mouth: Normal oral and palatal mucosa present and moist mucous membranes Throat: Yes tonsils normal, Yes uvula midline and Yes posterior oropharynx abnormal (Erythema) Eyes General: appearance normal, both eyes and all related structures Neck Neck: Yes normal visual inspection Resp Effort & Inspection: normal respiratory effort, able to speak in complete sentences, Actively coughing, no respiratory distress, not tachypneic, no tripod positioning and no use of accessory muscles Auscultation: clear to auscultation bilaterally Cardio Rate: regular rate Rhythm: regular rhythm Heart sounds: normal S1 and S2 Skin General skin exam: no rashes or lesions noted Neuro General: patient oriented x3 Extrem General: Yes normal to inspection and Yes no clubbing, cyanosis or edema Assessment & Plan Assessment & Plan (1) Sinusitis: Code(s): J32.9 - Chronic sinusitis, unspecified Qualifiers: Sinusitis location: unspecified location Chronicity: acute Recurrence: non-recurrent Qualified Code(s): J01.90 - Acute sinusitis, unspecified Plan: Vital signs are stable, patient well-appearing, we will send prednisone likely sinusitis secondary to a viral infection. Recommended she also start using Flonase and a Neti pot. Plan See above Medications: New prednisone 20 mg PO DAILY 5 tabs 0RF Coding Level of Care Code Est Pt Level 3 (69517) Diagnoses Acute non-recurrent sinusitis, unspecified location J01.90 Sinusitis location: unspecified location Chronicity: acute Recurrence: non-recurrent
== END 2024-05-02 10:59 | disposition home or self-care (01) ==
PROVIDERS: PCP Internal Medicine; Visit Provider Physician Assistant
DX: J01.90 Acute sinusitis, unspecified (principal)

== ENCOUNTER 2024-05-02 08:17 | Outpatient (REF) | payer BC, SELFPAY ==
[2024-05-02 14:02] LABS: Influenza A PCR NEGATIVE (Negative); Influenza B PCR NEGATIVE (Negative); Resp Syncy Virus RNA Qual PCR NEGATIVE (Negative); SARS COV2 PCR INHOUSE NEGATIVE (Negative)
== END 2024-05-02 08:18 | disposition home or self-care (01) ==
LOC: HO.LNP 08:17
PROVIDERS: PCP Internal Medicine; Visit Provider Physician Assistant
DX: R09.89 Other specified symptoms and signs involving the circulatory and respiratory systems (principal)
CPT/HCPCS: 0241U

== ENCOUNTER 2024-05-05 08:52 | Outpatient (AMB) | payer BC, SELFPAY ==
--- NOTE | 2024-05-05 08:58 | MHC.PC.OV ---
Intake Visit Reasons: imaging result (neck xray) Allergies No Known Allergies [No Known Allergies*] Allergy (Verified 05/05/24 09:00) Medication List - Last Reconciled 05/05/24 by Bk Ramirez MD blood sugar diagnostic qd prn blood sugar diagnostic (Accu-Chek Guide test strips) Accu-chek guide me test strips. Patient to check blood sugars 3 times every other day blood-glucose meter As directed blood-glucose sensor ([employer] Chad 3 Sensor device) As directed calcium carbonate-vitamin D3 500 mg-5 mcg (200 unit) (Calcium 500 + D) 1 tab PO DAILY glipizide 5 mg PO BID 90 days Jardiance (empagliflozin) 25 mg PO DAILY 90 days NS lancets qd prn lisinopril 10 mg PO DAILY 90 days lovastatin 40 mg PO DAILY prednisone 20 mg PO DAILY tramadol 50 mg PO .qhs 30 days Tobacco use date assessed: 05/05/24 Dental Screening Dental Screen Date: 05/05/24 Did you have a dental visit in the last 12 months?: Yes Did you have a dental problem in the last 6 months where you did not have access to dental care?: No Was dental information given to patient?: Patient has dentist HPI imaging result (neck xray) HPI Details Patient continue to have neck pain radiating to right shoulder we got Xray cervical spine that showed No acute fracture or spondylolisthesis is seen. The cervical disc spaces are well-maintained. There is multi-level cervical endplate and facet arthropathy. she is taking tramadol at night, thats when her neck pain is worse refill sent I have also placed ref to pain management for further treatment after discussing with patient [facility] Medical History Vaginal atrophy Obesity Arthrosis Osteopenia Lipid disorder Hypertension, essential Diabetes 1.5, managed as type 2 Surgical History No pertinent past surgical history Social History Housing: House Alcohol intake: current Alcohol intake frequency: holidays/special occasions only Patient Tobacco Use Status: Former Tobacco user Years Smoked: 20 e-Cigarette/Vaping Use: Never Used Current occupational status: employed 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 Bo Can, Ermelinda Franco, Braulio Jonse and colleagues, with an educational peter from [employer]. Review of Systems Const Denies chills and Denies fever(s) ENT Denies epistaxis and Denies nasal discharge Card Denies chest pain Resp Denies chest congestion, Denies cough and Denies hemoptysis GI Denies diarrhea and Denies nausea Skin/Breast Denies rash Neuro Reports no additional complaints Psych Reports no additional complaints Endo Reports no additional complaints Physical exam (Primary Care) Tobacco/Smoking Status: Tobacco use Status Tobacco use date assessed 05/05/24 05/05/24 09:00 Patient Tobacco Use Status Former Tobacco user 05/05/24 09:00 e-Cigarette/Vaping Use Never Used 05/05/24 09:00 Thrive Assessment: Date of Thrive Assessment Date Thrive assessed 09/22/23 05/05/24 09:00 Telehealth Telehealth Telehealth Platform: [employer] Location of provider rendering services: practice address Location of patient: address on file Patient Identification confirmed using: Name, : Yes Telehealth method: voice only Patient verbally consented to treatment: Yes Patient verbally consented to billing insurance company: Yes Patient informed of any privacy concerns related to visit: Yes Minutes spent on Phone/Video with Pt.: 14 Coding Level of Care Code Tele Est Pt Level 3 (43655) Diagnoses Radiculitis of right cervical region M54.12 Assessment & Plan Assessment & Plan (1) Radiculitis of right cervical region: Code(s): M54.12 - Radiculopathy, cervical region Category: Medical Plan Patient continue to have neck pain radiating to right shoulder we got X ray cervical spine that showed No acute fracture or spondylolisthesis is seen. The cervical disc spaces are well-maintained. There is multi-level cervical endplate and facet arthropathy. she is taking tramadol at night, thats when her neck pain is worse refill sent I have also placed ref to pain management for further treatment after discussing with patient Orders: Referrals Pain Management Referral M54.12 - Radiculopathy, cervical region Medications: Refilled tramadol 50 mg PO .qhs 30 tabs 0RF Neck pain 30 days
== END 2024-05-05 11:54 | disposition home or self-care (01) ==
LOC: HO.HMCC 08:52
PROVIDERS: PCP Internal Medicine; Visit Provider Internal Medicine
DX: M54.12 Radiculopathy, cervical region (principal)

== ENCOUNTER → 2024-05-05 08:52 | Outpatient (BNVA) | payer BC, SELFPAY | PROVIDERS: PCP Internal Medicine; Visit Provider Internal Medicine ==

== ENCOUNTER 2024-05-18 09:53 | Outpatient (AMB) | payer BC, SELFPAY ==
[2024-05-18 10:21] VITALS: BP 112/57; PULSE 74; O2SAT 97; BMI 32.8
--- NOTE | 2024-05-18 10:21 | A.OFFVIS_ITS ---
Vital Signs 05/18/24 10:21 Height 5 ft Weight 168 lb BMI 32.8 BP 112/57 L Blood Pressure Location Rt brachial Position Sitting Pulse 74 Pulse Source Pulse Oximeter Pulse Oximetry (%) 97 Oxygen Delivery Method Room Air Intake Visit Reasons: Cervical Radiculopathy Allergies No Known Allergies [No Known Allergies*] Allergy (Verified 05/18/24 10:22) Medication List - Last Reconciled 05/18/24 by Luiza Field blood sugar diagnostic qd prn blood sugar diagnostic (Accu-Chek Guide test strips) Accu-chek guide me test strips. Patient to check blood sugars 3 times every other day blood-glucose meter As directed blood-glucose sensor ([employer] Chad 3 Sensor device) As directed calcium carbonate-vitamin D3 500 mg-5 mcg (200 unit) (Calcium 500 + D) 1 tab PO DAILY glipizide 5 mg PO BID 90 days Jardiance (empagliflozin) 25 mg PO DAILY 90 days NS lancets qd prn lisinopril 10 mg PO DAILY 90 days lovastatin 40 mg PO DAILY prednisone 20 mg PO DAILY tramadol 50 mg PO .qhs 30 days HPI Comments Details: Diana is a very pleasant 63-year-old female who presents to the office today for evaluation management of her chronic left-sided neck pain Recent x-ray reviewed, results as per below Patient has been suffering with this pain for approximately 1 year. She denies inciting injury, trauma, fall. Endorses left sided neck pain with occasional radiation towards the shoulder. 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 Decreased range of motion. Pain with looking over the left shoulder Patient has completed physical therapy without last year, she continues with home exercise program but pain persists Has been taking Tylenol and naproxen without improvement of her symptoms. Topical medications do not help Using a TENS unit with minimal relief Prescribed tramadol from her primary care doctor that she uses at bedtime with some improvement. Pain returns once medication is wore off. 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 Worse with movements and weather changes. Worse later in the day and into the night. In terms of muscle damage condition is described as aching, cramping, dull, sore Pain is negatively impacting patient's enjoyment of life, general activity, sleep, work, ability to perform activities of daily living and normal functioning Denies implantable devices, pacemaker defibrillator Denies current use of nicotine, tobacco, alcohol or illicit substances Denies current use of anticoagulants Patient is known diabetic, most recent A1c 7.1 in March 2024 [facility] Medical History Vaginal atrophy Obesity Arthrosis Osteopenia Lipid disorder Hypertension, essential Diabetes 1.5, managed as type 2 Surgical History No pertinent past surgical history Social History Housing: House Alcohol intake: current Alcohol intake frequency: holidays/special occasions only Patient Tobacco Use Status: Former Tobacco user Years Smoked: 20 e-Cigarette/Vaping Use: Never Used Current occupational status: employed 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 Answers questions appropriately. Fully engaged in examination. Skin: warm, dry, intact HEENT: Normocephalic. Hearing intact. Cardiac: External chest normal in appearance. Respiratory: No cough, audible wheezing or stridor. Abdomen: without gross distension. MS: No obvious swelling or deformities. Able to transition from sit to stand unassisted. Ambulates with bilaterally normal heel strike and toe off Cervical Spine: Visible inspection without gross abnormality Nontender to palpation over bilateral trapezius Minimally tender to palpation midline cervical vertebrae decreased cervical ROM in all planes Spurling compression test positive BUE strength 5/5 Elvey's tension test negative bilaterally Neurological: Oriented to person, place, time and situation. Thought process intact. No gait abnormalities appreciated. Psychiatric: Appropriate mood and affect. Good judgment and insight. Results Reviewed Results Reviewed: 04/02/24 XR/XR cervical spine 2V FINDINGS: Vertebral body heights and alignment are normal. The disc spaces are well-maintained. No acute fracture or spondylolisthesis is seen. There is multi-level cervical endplate and facet arthropathy. The dens and C7-T1 interface are normal. The posterior elements are intact. There is no prevertebral soft tissue swelling. IMPRESSION: 1. No acute fracture or spondylolisthesis is seen. 2. The cervical disc spaces are well-maintained. 3. There is multi-level cervical endplate and facet arthropathy. Assessment & Plan Assessment & Plan (1) Cervical spondylosis: Code(s): M47.812 - Spondylosis without myelopathy or radiculopathy, cervical region Category: Medical Plan Diana is a very pleasant 63-year-old female who presented to the office today for evaluation management of her chronic left sided neck pain History, physical exam and provocative testing consistent with cervical spondylosis Patient has exhausted conservative therapy including PT, home exercise program, [id number] medications, topical medications and nonsteroidal anti- inflammatory medications without improvement of her symptoms Discussed options for treatment including diagnostic interventional testing, epidural steroid injections, peripheral nerve stimulation with Sprint, RFA and more permanent neuromodulation. Will schedule for fluoroscopy guided diagnostic left C4-C5 C6 medial branch blocks with local anesthetic. All questions and concerns have been answered and patient agrees with the plan. Follow up after injections and sooner if needed. Coding Level of Care Code New Pt Level 4 (68133) Complex EM visit Add On G2211 Diagnoses Cervical spondylosis M47.812
== END 2024-05-18 10:44 | disposition home or self-care (01) ==
PROVIDERS: PCP Internal Medicine; Referring Provider Internal Medicine; Visit Provider Registered Nurse Emergency
DX: M47.812 Spondylosis without myelopathy or radiculopathy, cervical region (principal)
CPT/HCPCS: 99204

== ENCOUNTER → 2024-05-18 09:53 | Outpatient (BNVA) | payer BC, SELFPAY | PROVIDERS: PCP Internal Medicine; Referring Provider Internal Medicine; Visit Provider Registered Nurse Emergency ==

== ENCOUNTER 2025-02-24 09:39 | Outpatient (AMB) | payer BC, SELFPAY ==
[2025-02-24 09:44] VITALS: BP 136/72; PULSE 76; O2SAT 97; BMI 32.2
--- NOTE | 2025-02-24 09:44 | MHC.PC.OV ---
Vital Signs 02/24/25 09:44 Height 5 ft Weight 165 lb BMI 32.2 BP 136/72 Blood Pressure Location Lt brachial Position Sitting Pulse 76 Pulse Source Pulse Oximeter Pulse Oximetry (%) 97 Intake Visit Reasons: Followup BP, meds Allergies No Known Allergies (No Known Allergies*) Allergy (Verified 02/24/25 09:44) Medication List - Last Reconciled 02/24/25 by Bk Ramirez MD blood sugar diagnostic qd prn blood sugar diagnostic (Accu-Chek Guide test strips) Accu-chek guide me test strips. Patient to check blood sugars 3 times every other day blood-glucose meter As directed blood-glucose sensor ([employer] Chad 3 Sensor device) As directed calcium carbonate-vitamin D3 500 mg-5 mcg (200 unit) (Calcium 500 + D) 1 tab PO DAILY glipizide 5 mg PO BID 90 days Jardiance (empagliflozin) 25 mg PO DAILY 90 days NS lancets qd prn lisinopril 10 mg PO DAILY 90 days lovastatin 40 mg PO DAILY Tobacco use date assessed: 02/24/25 Dental Screening Dental Screen Date: 02/24/25 Did you have a dental visit in the last 12 months?: Yes Did you have a dental problem in the last 6 months where you did not have access to dental care?: No Was dental information given to patient?: Patient has dentist HPI Followup BP, meds HPI Details History - The patient is a 64-year-old female last time seen was mar of last year, didnt come in for follow up after that has H/o diabetes, HTN, Lipid disorder , obesity, depression presenting with headaches. The headaches have been persistent and the patient believes they may originate from neck pain, which she attributes to her driving work. - The patient acknowledges having no labs performed since March of the prior year, and a missed follow-up appointment in July. 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 - During the regular school year, her workload involves driving to and from destinations multiple times a day, with a reduced schedule during the summer. - The patient mentioned having eggs for breakfast, showing no requirement for a fasting state. Medications - Logastatin 40 mg for hyperlipidemia - Lisinopril 10 mg for hypertension - Jardiance for diabetes - Glipizide for diabetes - Tylenol (acetaminophen) for arthritis-related pain relief Problem List - Diabetes Mellitus - Hyperlipidemia - Hypertension - Cervical Degenerative Disease - depression - obesity Diagnostic results - Labs: Hemoglobin A1c 7.3% (most recent) - No other labs or tests since March of the prior year. Patient Instructions - Arrange and complete blood tests today. Fasting is not required. - Avoid using ibuprofen due to its potential impact on kidney function. - Tylenol is permissible for managing pain. - Report back if there are any worsening symptoms or concerns about medications. 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 and give us a call to set up a nurse visit Review of Systems General: No fever no chills neurological: No headaches no dizziness ear nose throat: No sore throat no hearing difficulty no ear pain cardiovascular: No syncope, no chest pain, no palpitations gastrointestinal: No nausea vomiting or diarrhea endocrine: No polyuria polydipsia no heat intolerance Physical Exam general: No acute distress HEENT: No acute findings neck: Pain present, degenerative cervical disease noted respiratory system: Able to talk in full sentences, no audible wheeze, no stridor cardiovascular: S1-S2 RRR gastrointestinal: No pain extremities: No new findings [employer]IV[employer]ITY TE[employer]ER: Alert awake oriented x3 motor sensory intact skin: Normal turgor [facility] Medical History Vaginal atrophy Obesity Arthrosis Osteopenia Lipid disorder Hypertension, essential Diabetes 1.5, managed as type 2 Surgical History No pertinent past surgical history Social History Housing: House Alcohol intake: current Alcohol intake frequency: holidays/special occasions only Patient Tobacco Use Status: Former Tobacco user Years Smoked: 20 e-Cigarette/Vaping Use: Never Used Current occupational status: employed 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 1. Little interest or pleasure in doing things: several days 2. Feeling down, depressed, or hopeless: not at all 3. Trouble falling or staying asleep, or sleeping too much: more than half the days 4. Feeling tired or having little energy: more than half the days 5. Poor appetite or overeating: more than half the days 6. Feeling bad about yourself - or that you are a failure or have let yourself or your family down: more than half the days 7. Trouble concentrating on things, such as reading the newspaper or watching television: several days 8. Moving or speaking so slowly that other people could have noticed. Or the opposite - being so fidgety or restless that you have been moving around a lot more than usual: not at all 9. Thoughts that you would be better off or of hurting yourself in some way: not at all Total score: 10 Depression Screening Interpretation: Positive Depression Screening Follow-up: Existing condition and In treatment Depression Screening Done: Yes 07349 - PHQ-9 Billing: Yes Source: Developed by Drs. Bo Can, Ermelinda Franco, Braulio Jones and colleagues, with an educational peter from [employer]. Thrive Questionnaire Date Thrive assessed: 02/24/25 I am a: Patient What is your living situation today?: I choose not to answer this question Within the past 12 months, did the food you bought not last and you didn't have the money to get more?: I choose not to answer this question Within the past 12 months, did you worry whether your food would run out before you got money to buy more?: I choose not to answer this question Do you have trouble paying for medicines?: I choose not to answer this question Do you have trouble getting transportation to medical appointments?: I choose not to answer this question Do you have trouble paying your heating and electricity bill?: I choose not to answer this question Do you have trouble taking care of your child, family member or friend?: I choose not to answer this question Do you have trouble with day-to-day activities such as bathing, preparing meals, shopping, managing finances, etc.?: I choose not to answer this question Are you currently unemployed and looking for a job?: I choose not to answer this question Are you interested in more education?: I choose not to answer this question Please select the resources that you would like help with: None Currently or been in a relationship where the following occur: I choose not to answer THRIVE Score: 0 AUDIT C Alcohol Use Questionnaire (AUDIT-C) 1. How often do you have a drink containing alcohol?: Never 3. How often do you have six or more drinks on one occasion?: Never Total Score: 0 Score Reviewed/Action Taken: Yes GRAYSON-7 AMB Questionnaire GRAYSON-7 Date GRAYSON - 7 assessed: 02/24/25 Feeling nervous, anxious, or on edge: 1 = Several days Not being able to stop or control worryin = Several days Worrying too much about different things: 2 = More than half the days Trouble relaxin = More than half the days Being so restless that it is hard to sit still: 1 = Several days Becoming easily annoyed or irritable: 2 = More than half the days Feeling afraid as if something awful might happen: 2 = More than half the days Total GRAYSON-7 score (0-4 normal; 5-9 mild; 10-14 moderate; 15-21 severe): 11 Source: Developed by Drs. Bo Can, Ermelinda Franco, Braulio Jones and colleagues, with an educational peter from [employer]. GRAYSON-7 Assessment Billing GRAYSON-7 Assessment Tool: GRAYSON-7 Assessment 59321 Physical exam (Primary Care) Vital Signs: Last Vital Signs Pulse 76 02/24/25 09:44 BP 136/72 02/24/25 09:44 Pulse Ox 97 02/24/25 09:44 BMI result Body Mass Index 32.2 Tobacco/Smoking Status: Tobacco use Status Tobacco use date assessed 02/24/25 02/24/25 09:47 Patient Tobacco Use Status Former Tobacco user 02/24/25 09:47 e-Cigarette/Vaping Use Never Used 02/24/25 09:47 PHQ-9: PHQ-9 Score PHQ-9: Total score 10 02/24/25 10:08 Depression Screening Interpretation: Positive Depression Screening Follow-up: Existing condition and In treatment Thrive Assessment: Date of Thrive Assessment Date Thrive assessed 02/24/25 02/24/25 09:47 Currently or been in a relationship where the following occur: I choose not to answer Results AMB Hemoglobin A1c AMB Hemoglobin A1c 7.3 % Last Edit by Jose Cruz Morales CMA on 02/24/25 10:00 Results Reviewed Results Reviewed: Laboratory Last Values Hgb A1c (Clinic) 7.3 % (4.0-6.0) H 02/24/25 09:50 Coding Level of Care Code Est Pt Level 4 (90640) Diagnoses Lipid disorder E78.9 Hypertension, essential I10 Diabetes 1.5, managed as type 2 E13.9 Anxiety, generalized F41.1 Moderate episode of recurrent major depressive disorder F33.1 Active/Remission status: currently active Major depression episode severity: moderate Class 1 obesity due to excess calories with serious comorbidity and body mass index (BMI) of 33.0 to 33.9 in adult E66.09; Z68.33 Body mass index: BMI 33.0-33.9 Obesity classification: adult class 1 (BMI 30 - 34.9) Serious obesity comorbidity presence: with serious comorbidity LFT elevation R79.89 Microalbuminuria R80.9 Neck pain M54.2 Cervical radiculopathy M54.12 Additional Codes GRAYSNO-7 Assessment Billing - GRAYSON-7 Assessment Tool: GRAYSON-7 Assessment 03816 ([id number]) PHQ-9 - 31513 - PHQ-9 Billing: Yes ([id number]) Assessment & Plan Assessment & Plan (1) Lipid disorder: Code(s): E78.9 - Disorder of lipoprotein metabolism, unspecified Category: Medical (2) Hypertension, essential: Code(s): I10 - Essential (primary) hypertension Category: Medical (3) Diabetes 1.5, managed as type 2: Code(s): E13.9 - Other specified diabetes mellitus without complications Category: Medical (4) Anxiety, generalized: Code(s): F41.1 - Generalized anxiety disorder Category: Medical (5) Major depression, recurrent: Code(s): F33.9 - Major depressive disorder, recurrent, unspecified Category: Medical Qualifiers: Active/Remission status: currently active Major depression episode severity: moderate Qualified Code(s): F33.1 - Major depressive disorder, recurrent, moderate (6) Obesity due to excess calories: Code(s): E66.09 - Other obesity due to excess calories Category: Medical Qualifiers: Body mass index: BMI 33.0-33.9 Obesity classification: adult class 1 (BMI 30 - 34.9) Serious obesity comorbidity presence: with serious comorbidity Qualified Code(s): E66.09 - Other obesity due to excess calories; Z68.33 - Body mass index [BMI] 33.0-33.9, adult (7) LFT elevation: Code(s): R79.89 - Other specified abnormal findings of blood chemistry Category: Medical (8) Microalbuminuria: Code(s): R80.9 - Proteinuria, unspecified Category: Medical (9) Neck pain: Code(s): M54.2 - Cervicalgia Category: Medical (10) Cervical radiculopathy: Code(s): M54.12 - Radiculopathy, cervical region Category: Medical Plan History - The patient is a 64-year-old female last time seen was mar of last year, didnt come in for follow up after that has H/o diabetes, HTN, Lipid disorder , obesity, depression presenting with headaches. The headaches have been persistent and the patient believes they may originate from neck pain, which she attributes to her driving work. - The patient acknowledges having no labs performed since March of the prior year, and a missed follow-up appointment in July. 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 - During the regular school year, her workload involves driving to and from destinations multiple times a day, with a reduced schedule during the summer. - The patient mentioned having eggs for breakfast, showing no requirement for a fasting state. Medications - Logastatin 40 mg for hyperlipidemia - Lisinopril 10 mg for hypertension - Jardiance for diabetes - Glipizide for diabetes - Tylenol (acetaminophen) for arthritis-related pain relief Problem List - Diabetes Mellitus - Hyperlipidemia - Hypertension - Cervical Degenerative Disease - depression - obesity - microalbuminuria Diagnostic results - Labs: Hemoglobin A1c 7.3% (most recent) - No other labs or tests since March of the prior year. Patient Instructions - Arrange and complete blood tests today. Fasting is not required. - Avoid using ibuprofen due to its potential impact on kidney function. - Tylenol is permissible for managing pain. - Report back if there are any worsening symptoms or concerns about medications. 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 and give us a call to set up a nurse visit Orders: Orders Complete Blood Count Auto Diff Today E13.9 - Other specified diabetes mellitus without complications, E66.09 - Other obesity due to excess calories, E78.9 - Disorder of lipoprotein metabolism, unspecified, F33.1 - Major depressive disorder, recurrent, moderate, F41.1 - Generalized anxiety disorder, I10 - Essential (primary) hypertension, M54.12 - Radiculopathy, cervical region, M54.2 - Cervicalgia, R79.89 - Other specified abnormal findings of blood chemistry, R80.9 - Proteinuria, unspecified, Z68.33 - Body mass index [BMI] 33.0-33.9, adult Comprehensive Met. Panel Today E13.9 - Other specified diabetes mellitus without complications, E66.09 - Other obesity due to excess calories, E78.9 - Disorder of lipoprotein metabolism, unspecified, F33.1 - Major depressive disorder, recurrent, moderate, F41.1 - Generalized anxiety disorder, I10 - Essential (primary) hypertension, M54.12 - Radiculopathy, cervical region, M54.2 - Cervicalgia, R79.89 - Other specified abnormal findings of blood chemistry, R80.9 - Proteinuria, unspecified, Z68.33 - Body mass index [BMI] 33.0-33.9, adult Microalbumin, Random (w Creat) Today E13.9 - Other specified diabetes mellitus without complications AMB Hemoglobin A1c Today Z13.9 - Encounter for screening, unspecified LDL Cholesterol Direct Today E13.9 - Other specified diabetes mellitus without complications, E66.09 - Other obesity due to excess calories, E78.9 - Disorder of lipoprotein metabolism, unspecified, F33.1 - Major depressive disorder, recurrent, moderate, F41.1 - Generalized anxiety disorder, I10 - Essential (primary) hypertension, M54.12 - Radiculopathy, cervical region, M54.2 - Cervicalgia, R79.89 - Other specified abnormal findings of blood chemistry, R80.9 - Proteinuria, unspecified, Z68.33 - Body mass index [BMI] 33.0-33.9, adult Medications: New semaglutide (weight loss) (Wade) administer weeks 1 through 4 of therapy 0.25 mg (0.5 mL) subcut QWEEK 2 mL 2RF E13.9 - Other specified diabetes mellitus without complications, E66.09 - Other obesity due to excess calories, E78.9 - Disorder of lipoprotein metabolism, unspecified, I10 - Essential (primary) hypertension, Z68.33 - Body mass index [BMI] 33.0-33.9, adult
== END 2025-02-24 11:51 | disposition home or self-care (01) ==
LOC: HO.HMCC 09:39
PROVIDERS: PCP Internal Medicine; Visit Provider Internal Medicine
DX: I10 Essential (primary) hypertension (principal); E13.9 Other specified diabetes mellitus without complications; F33.1 Major depressive disorder, recurrent, moderate; E78.9 Disorder of lipoprotein metabolism, unspecified; F41.1 Generalized anxiety disorder; E66.09 Other obesity due to excess calories; Z68.33 Body mass index [BMI] 33.0-33.9, adult; R79.89 Other specified abnormal findings of blood chemistry; R80.9 Proteinuria, unspecified; M54.2 Cervicalgia; M54.12 Radiculopathy, cervical region

== ENCOUNTER 2025-02-24 09:39 | Outpatient (REF) | payer BC, SELFPAY ==
[2025-02-24 13:00] LABS: MANUAL DIFF FLAG NO
[2025-02-24 13:08] LABS: Hematocrit 45.2 % (37.0-47.0); Hemoglobin 14.6 g/dl (12.0-16.0); Imm Gran Abs Auto 0.02 X10*3/uL (0.00-0.03); Imm Gran Pct Auto 0.3 % (0.0-0.4); Lymphocytes Absolute Auto 2.3 X10*3/uL (1.2-4.9); Mean Corpuscular HGB Conc 32.3 g/dl (31.0-35.0); Mean Corpuscular Hemoglobin 29.3 pg (27.0-33.0); Mean Corpuscular Volume 90.8 fL (80.0-98.0); NRBC Abs Auto 0.000 X10*3/uL (0.0-0.012); NRBC Pct Auto 0.0 /100WBC (0.0-0.2); Platelet Count 303 X10*3/uL (160-400); Red Blood Count 4.98 X10*6/uL (4.20-5.50); White Blood Count 6.2 X10*3/uL (4.8-10.8)
[2025-02-24 13:22] LABS: Alanine Aminotransferase 18 U/L (0-31); Albumin Level 4.7 g/dL (3.5-5.0); Alkaline Phosphatase 68 U/L (39-117); Anion Gap 14 (12-20); Aspartate Amino Transferase 21 U/L (5-31); Blood Urea Nitrogen 19 mg/dL (9-16); Calcium 9.6 mg/dL (8.4-10.2); Carbon Dioxide 25 mmol/L (22-29); Chloride 106 mmol/L (96-108); Estimated Glomerular Filt Rate > 60; Potassium 4.1 mmol/L (3.3-5.1); Sodium 141 mmol/L (135-145); Total Protein 7.7 g/dL (6.5-8.0)
[2025-02-24 13:38] LABS: Microalbum/Creatinine Ratio Ur 14.1 ug/mg cr (<30)
== END 2025-02-24 09:40 | disposition home or self-care (01) ==
LOC: HO.HMGCLDS 09:39
PROVIDERS: PCP Internal Medicine; Visit Provider Internal Medicine
DX: E78.5 Hyperlipidemia, unspecified (principal); I10 Essential (primary) hypertension; E13.9 Other specified diabetes mellitus without complications; F41.1 Generalized anxiety disorder; F33.1 Major depressive disorder, recurrent, moderate; E66.09 Other obesity due to excess calories; Z68.33 Body mass index [BMI] 33.0-33.9, adult; R79.89 Other specified abnormal findings of blood chemistry; R80.9 Proteinuria, unspecified; M54.2 Cervicalgia; M54.12 Radiculopathy, cervical region; Z79.84 Long term (current) use of oral hypoglycemic drugs; Z79.899 Other long term (current) drug therapy; Z13.31 Encounter for screening for depression; Z13.39 Encounter for screening examination for other mental health and behavioral disorders
CPT/HCPCS: 36415; 80053; 82043; 82570; 83036; 83721; 85025; 96127

== ENCOUNTER 2025-04-19 10:09 | Outpatient (AMB) | payer BC, SELFPAY ==
--- NOTE | 2025-04-19 10:14 | A.OFFPC_ITS ---
Vital Signs 04/19/25 10:15 Height 5 ft Weight 163 lb BMI 31.8 BP 126/70 Blood Pressure Location Lt brachial Position Sitting Pulse 74 Pulse Source Pulse Oximeter Pulse Oximetry (%) 96 Intake Visit Reasons: PE Allergies No Known Allergies (No Known Allergies*) Allergy (Verified 04/19/25 10:15) Medication List - Last Reconciled 04/19/25 by Bk Ramirez MD blood sugar diagnostic qd prn blood sugar diagnostic (Accu-Chek Guide test strips) Accu-chek guide me test strips. Patient to check blood sugars 3 times every other day blood-glucose meter As directed blood-glucose sensor ([employer] Chad 3 Sensor device) As directed calcium carbonate-vitamin D3 500 mg-5 mcg (200 unit) (Calcium 500 + D) 1 tab PO DAILY glipizide 5 mg PO BID 90 days Jardiance (empagliflozin) 25 mg PO DAILY 90 days NS lancets qd prn lisinopril 10 mg PO DAILY 90 days lovastatin 40 mg PO DAILY Tobacco use date assessed: 02/24/25 Dental Screening Dental Screen Date: 02/24/25 HPI PE HPI Details History of Present Illness The patient is a 64-year-old female presenting for a routine physical examination. Essential Hypertension: - Hypertension is managed with medicatio n. - tolerating meds Type 2 Diabetes Mellitus: - Diabetes is currently managed with Gli pizide and Jardiance. - Blood sugar levels have been elevated the past few days as per patient, attributed to having a cold. - The patient monitors glucose once or t wice a week. - A1c was at 7.3 in January. Obesity: - The patient has a BMI of 31.8. - trying to lose wt Lipid Disorder: - The patient is on lovastatin for lipid management. - Labs conducted in January indicated good cholesterol levels. Upper Respiratory Infection (suspected): - The patient reports a cold and attribu [place] recent elevated blood sugar levels to the illness. 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 - Mammogram: Patient declined - Colonoscopy: Patient declined - Pap smear: Patient declined - Current vaccination: Received a flu va ccine - Blood test scheduled for three months Medications - Glipizide 5 mg BID for Type 2 Diabetes Mellitus - Jardiance 25 mg daily for Type 2 Diabe syd[place] Mellitus - Lisinopril 10 mg for Essential Hyperte nsion (dose inferred from previous history, not discussed in visit) - Lovastatin for Lipid Disorder Patient Instructions - Continue current medication regimen - Monitor blood sugar regularly - Schedule blood tests in three months f or follow-up - Complete fasting labs as ordered - Obt[facility] - Received flu vaccine and encouraged du e to exposure to school environment f/u 3-4 M Review of Systems - General: No fever no chills - Neurological: No headaches no dizzin ess - Ear nose throat: No sore throat no hearing difficulty no ear pain - Cardiovascular: No syncope, no chest pain, no palpitations - Gastrointestinal: No nausea vomiting or diarrhea - Endocrine: No polyuria polydipsia no heat intolerance - Genitourinary: No dysuria - Skin: No new complaints Physical Exam General: Cooperative, healthy appearing, comfortable, no acute distress Orientation: Patient oriented x3 Head: Normal to inspection Ears: Within normal limit visually Nose: Normal external nose present Face and sinus: Normal facial exam Eyes: Appearance normal, extraocular movement intact pupils reactive Neck: Normal visual inspection and supple Respiratory: Normal respiratory effort and able to speak in complete sentences. Clear to auscultation, no stridor Cardiovascular: S1 and S2 RRR GI: Normal to inspection. Soft to palpation and nontender Skin: Turgor normal, no acute findings Neuro: Patient oriented x3, motor sensory intact, balance intact, tandem pass Extremities: Normal to inspection, right shoulder with limited ROM to 80 degree [facility] Medical History Vaginal atrophy Obesity Arthrosis Osteopenia Lipid disorder Hypertension, essential Diabetes 1.5, managed as type 2 Surgical History No pertinent past surgical history Social History Housing: House Alcohol intake: current Alcohol intake frequency: holidays/special occasions only Patient Tobacco Use Status: Former Tobacco user Years Smoked: 20 e-Cigarette/Vaping Use: Never Used Current occupational status: employed 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 1. Little interest or pleasure in doing things: several days 2. Feeling down, depressed, or hopeless: not at all 3. Trouble falling or staying asleep, or sleeping too much: more than half the days 4. Feeling tired or having little energy: more than half the days 5. Poor appetite or overeating: more than half the days 6. Feeling bad about yourself - or that you are a failure or have let yourself or your family down: more than half the days 7. Trouble concentrating on things, such as reading the newspaper or watching television: several days 8. Moving or speaking so slowly that other people could have noticed. Or the opposite - being so fidgety or restless that you have been moving around a lot more than usual: not at all 9. Thoughts that you would be better off or of hurting yourself in some way: not at all Total score: 10 Depression Screening Interpretation: Positive Depression Screening Follow-up: Existing condition and In treatment Depression Screening Done: Yes 12585 - PHQ-9 Billing: Yes Source: Developed by Drs. Bo Can, Ermelinda Franco, Braulio Jones and colleagues, with an educational peter from [employer]. Thrive Questionnaire Date Thrive assessed: 02/23/25 I am a: Patient What is your living situation today?: I choose not to answer this question Within the past 12 months, did the food you bought not last and you didn't have the money to get more?: I choose not to answer this question Within the past 12 months, did you worry whether your food would run out before you got money to buy more?: I choose not to answer this question Do you have trouble paying for medicines?: I choose not to answer this question Do you have trouble getting transportation to medical appointments?: I choose not to answer this question Do you have trouble paying your heating and electricity bill?: I choose not to answer this question Do you have trouble taking care of your child, family member or friend?: I choose not to answer this question Do you have trouble with day-to-day activities such as bathing, preparing meals, shopping, managing finances, etc.?: I choose not to answer this question Are you currently unemployed and looking for a job?: I choose not to answer this question Are you interested in more education?: I choose not to answer this question Please select the resources that you would like help with: None Currently or been in a relationship where the following occur: I choose not to answer THRIVE Score: 0 AUDIT C Alcohol Use Questionnaire (AUDIT-C) 1. How often do you have a drink containing alcohol?: Never 3. How often do you have six or more drinks on one occasion?: Never Total Score: 0 GRAYSON-7 AMB Questionnaire GRAYSON-7 Date GRAYSON - 7 assessed: 02/24/25 Feeling nervous, anxious, or on edge: 1 = Several days Not being able to stop or control worryin = Several days Worrying too much about different things: 2 = More than half the days Trouble relaxin = More than half the days Being so restless that it is hard to sit still: 1 = Several days Becoming easily annoyed or irritable: 2 = More than half the days Feeling afraid as if something awful might happen: 2 = More than half the days Total GRAYSON-7 score (0-4 normal; 5-9 mild; 10-14 moderate; 15-21 severe): 11 Source: Developed by Drs. Bo Can, Ermelinda Franco, Braulio Jones and colleagues, with an educational peter from [employer]. GRAYSON-7 Assessment Billing GRAYSON-7 Assessment Tool: GRAYSON-7 Assessment 37532 Physical exam (Primary Care) Vital Signs: Last Vital Signs Pulse 74 04/19/25 10:15 BP 126/70 04/19/25 10:15 Pulse Ox 96 04/19/25 10:15 BMI result Body Mass Index 31.8 Tobacco/Smoking Status: Tobacco use Status Tobacco use date assessed 02/24/25 04/19/25 10:17 Patient Tobacco Use Status Former Tobacco user 04/19/25 10:17 e-Cigarette/Vaping Use Never Used 04/19/25 10:17 PHQ-9: PHQ-9 Score PHQ-9: Total score 10 04/19/25 11:02 Depression Screening Interpretation: Positive Depression Screening Follow-up: Existing condition and In treatment Thrive Assessment: Date of Thrive Assessment Date Thrive assessed 02/23/25 04/19/25 10:17 Currently or been in a relationship where the following occur: I choose not to answer Office Procedures Flu Questionnaire Does the patient have a severe egg allergy?: No Does the patient have severe life threatening allergies?: No Does the patient have a fever or illness today?: No Has the patient ever had Guillain-[place] Syndrome?: No Has the patient ever had any past reaction to a flu shot?: No Immunizations Fluarix [id number] (PF) 45 mcg (15 mcg x 3)/0.5 mL IM syringe Performing Provider: Bk Ramirez MD Performing Location: [facility] Administered by: Jose Cruz Morales CMA on 04/19/25 11:02 Dose Route Admin Location Dispensed Lot Number Expiration Date NDC 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 Eligible 04/19/25 Private Coding Level of Care Code Est Pt Level 3 (95506) Est Pt Prev Care 40-64y(54717) Diagnoses Encounter for general adult medical examination with abnormal findings Z00.01 Chronic right shoulder pain M25.511; G89.29 Chronicity: chronic Diabetes 1.5, managed as type 2 E13.9 Class 1 obesity due to excess calories with serious comorbidity and body mass index (BMI) of 33.0 to 33.9 in adult E66.09; Z68.33 Obesity classification: adult class 1 (BMI 30 - 34.9) Serious obesity comorbidity presence: with serious comorbidity Body mass index: BMI 33.0-33.9 Lipid disorder E78.9 Hypertension, essential I10 Moderate episode of recurrent major depressive disorder F33.1 Active/Remission status: currently active Major depression episode severity: moderate Anxiety, generalized F41.1 Additional Codes PHQ-9 - 61671 - PHQ-9 Billing: Yes ([id number]) GRAYSON-7 Assessment Billing - GRAYSON-7 Assessment Tool: GRAYSON-7 Assessment 15878 ([id number]) Assessment & Plan Assessment & Plan (1) Encounter for general adult medical examination with abnormal findings: Code(s): Z00.01 - Encounter for general adult medical examination with abnormal findings Category: Medical (2) Shoulder pain, right: Code(s): M25.511 - Pain in right shoulder Category: Medical Qualifiers: Chronicity: chronic Qualified Code(s): M25.511 - Pain in right shoulder; G89.29 - Other chronic pain (3) Diabetes 1.5, managed as type 2: Code(s): E13.9 - Other specified diabetes mellitus without complications Category: Medical (4) Obesity due to excess calories: Code(s): E66.09 - Other obesity due to excess calories Category: Medical Qualifiers: Obesity classification: adult class 1 (BMI 30 - 34.9) Serious obesity comorbidity presence: with serious comorbidity Body mass index: BMI 33.0-33.9 Qualified Code(s): E66.09 - Other obesity due to excess calories; Z68.33 - Body mass index [BMI] 33.0-33.9, adult (5) Lipid disorder: Code(s): E78.9 - Disorder of lipoprotein metabolism, unspecified Category: Medical (6) Hypertension, essential: Code(s): I10 - Essential (primary) hypertension Category: Medical (7) Major depression, recurrent: Code(s): F33.9 - Major depressive disorder, recurrent, unspecified Category: Medical Qualifiers: Active/Remission status: currently active Major depression episode severity: moderate Qualified Code(s): F33.1 - Major depressive disorder, recurrent, moderate (8) Anxiety, generalized: Code(s): F41.1 - Generalized anxiety disorder Category: Medical Plan History of Present Illness The patient is a 64-year-old female presenting for a routine physical examination. Essential Hypertension: - Hypertension is managed with medication. - tolerating meds Type 2 Diabetes Mellitus: - Diabetes is currently managed with Glipizide and Jardiance. - Blood sugar levels have been elevated the past few days as per patient, attributed to having a cold. - The patient monitors glucose once or twice a week. - A1c was at 7.3 in January. Obesity: - The patient has a BMI of 31.8. - trying to lose wt Lipid Disorder: - The patient is on lovastatin for lipid management. - Labs conducted in January indicated good cholesterol levels. Upper Respiratory Infection (suspected): - The patient reports a cold and attributes recent elevated blood sugar levels to the illness. 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 - Mammogram: Patient declined - Colonoscopy: Patient declined - Pap smear: Patient declined - Current vaccination: Received a flu vaccine - Blood test scheduled for three months Medications - Glipizide 5 mg BID for Type 2 Diabetes Mellitus - Jardiance 25 mg daily for Type 2 Diabetes Mellitus - Lisinopril 10 mg for Essential Hypertension (dose inferred from previous history, not discussed in visit) - Lovastatin for Lipid Disorder Patient Instructions - Continue current medication regimen - Monitor blood sugar regularly - Schedule blood tests in three months for follow-up - Complete fasting labs as ordered - Obtain x-ray for right shoulder at convenience - Received flu vaccine and encouraged due to exposure to school environment f/u 3-4 M Orders: Orders Hemoglobin A1c Today E13.9 - Other specified diabetes mellitus without complications, E78.9 - Disorder of lipoprotein metabolism, unspecified, I10 - Essential (primary) hypertension Lipid Panel Today E13.9 - Other specified diabetes mellitus without complications, E78.9 - Disorder of lipoprotein metabolism, unspecified, I10 - Essential (primary) hypertension Influenza [id number] Immunization Today Z23 - Encounter for immunization Complete Blood Count Auto Diff Today E13.9 - Other specified diabetes mellitus without complications, E78.9 - Disorder of lipoprotein metabolism, unspecified, I10 - Essential (primary) hypertension Comprehensive Screven. Panel Fast Today E13.9 - Other specified diabetes mellitus without complications, E78.9 - Disorder of lipoprotein metabolism, unspecified, I10 - Essential (primary) hypertension Microalbumin, Random (w Creat) Today E13.9 - Other specified diabetes mellitus without complications, E78.9 - Disorder of lipoprotein metabolism, unspecified, I10 - Essential (primary) hypertension
[2025-04-19 10:15] VITALS: BP 126/70; PULSE 74; O2SAT 96; BMI 31.8
== END 2025-04-19 10:41 | disposition home or self-care (01) ==
LOC: HO.HMCC 10:10
PROVIDERS: PCP Internal Medicine; Visit Provider Internal Medicine
DX: Z00.00 Encounter for general adult medical examination without abnormal findings (principal); E13.9 Other specified diabetes mellitus without complications; E66.09 Other obesity due to excess calories; Z68.33 Body mass index [BMI] 33.0-33.9, adult; F33.1 Major depressive disorder, recurrent, moderate; M25.511 Pain in right shoulder; G89.29 Other chronic pain; E78.9 Disorder of lipoprotein metabolism, unspecified; I10 Essential (primary) hypertension; F41.1 Generalized anxiety disorder; Z23 Encounter for immunization

== ENCOUNTER → 2025-04-19 10:09 | Outpatient (BNVA) | payer BC, SELFPAY | PROVIDERS: PCP Internal Medicine; Visit Provider Internal Medicine | DX: Z00.01 Encounter for general adult medical examination with abnormal findings (principal); I10 Essential (primary) hypertension; E66.9 Obesity, unspecified; M25.511 Pain in right shoulder; G89.29 Other chronic pain; E13.9 Other specified diabetes mellitus without complications; E66.09 Other obesity due to excess calories; Z68.33 Body mass index [BMI] 33.0-33.9, adult; F33.1 Major depressive disorder, recurrent, moderate; F41.1 Generalized anxiety disorder; Z23 Encounter for immunization; Z68.31 Body mass index [BMI] 31.0-31.9, adult; Z79.899 Other long term (current) drug therapy | CPT/HCPCS: 90471; 90656; 96127 ==

== ENCOUNTER 2025-07-15 09:30 | Outpatient (REF) | payer BC, SELFPAY ==
[2025-07-15 11:39] LABS: MANUAL DIFF FLAG NO
[2025-07-15 11:46] LABS: Hematocrit 44.1 % (37.0-47.0); Hemoglobin 14.2 g/dl (12.0-16.0); Imm Gran Abs Auto 0.02 X10*3/uL (0.00-0.03); Imm Gran Pct Auto 0.4 % (0.0-0.4); Lymphocytes Absolute Auto 2.2 X10*3/uL (1.2-4.9); Mean Corpuscular HGB Conc 32.2 g/dl (31.0-35.0); Mean Corpuscular Hemoglobin 29.3 pg (27.0-33.0); Mean Corpuscular Volume 91.1 fL (80.0-98.0); NRBC Abs Auto 0.000 X10*3/uL (0.0-0.012); NRBC Pct Auto 0.0 /100WBC (0.0-0.2); Platelet Count 290 X10*3/uL (160-400); Red Blood Count 4.84 X10*6/uL (4.20-5.50); White Blood Count 5.6 X10*3/uL (4.8-10.8)
[2025-07-15 12:09] LABS: Alanine Aminotransferase 14 U/L (0-31); Albumin Level 4.6 g/dL (3.5-5.0); Alkaline Phosphatase 64 U/L (39-117); Anion Gap 14 (12-20); Aspartate Amino Transferase 28 U/L (5-31); Blood Urea Nitrogen 12 mg/dL (9-16); Calcium 9.7 mg/dL (8.4-10.2); Carbon Dioxide 24 mmol/L (22-29); Chloride 107 mmol/L (96-108); Cholesterol 166 mg/dL (<200); Estimated Glomerular Filt Rate > 60; HDL Cholesterol 43 mg/dL (>40); Potassium 3.9 mmol/L (3.3-5.1); Sodium 141 mmol/L (135-145); Total Protein 7.6 g/dL (6.5-8.0); Triglycerides 178 mg/dL (<150)
[2025-07-15 12:39] LABS: Microalbum/Creatinine Ratio Ur 18.4 ug/mg cr (<30)
== END 2025-07-15 09:31 | disposition home or self-care (01) ==
LOC: HO.HMGCLDS 09:30
PROVIDERS: PCP Internal Medicine; Visit Provider Internal Medicine
DX: I10 Essential (primary) hypertension (principal); E78.9 Disorder of lipoprotein metabolism, unspecified; E13.9 Other specified diabetes mellitus without complications
CPT/HCPCS: 36415; 80053; 80061; 82043; 82570; 83036; 85025

== ENCOUNTER 2025-07-21 10:26 | Outpatient (AMB) | payer BC, SELFPAY ==
[2025-07-21 10:30] VITALS: BP 120/72; PULSE 90; O2SAT 97; BMI 32.0
--- NOTE | 2025-07-21 10:30 | A.OFFPC_ITS ---
Vital Signs 07/21/25 10:30 Height 5 ft Weight 164 lb BMI 32.0 BP 120/72 Blood Pressure Location Lt brachial Position Sitting Pulse 90 Pulse Source Pulse Oximeter Pulse Oximetry (%) 97 Intake Visit Reasons: 3 mo follow up Allergies No Known Allergies (No Known Allergies*) Allergy (Verified 04/19/25 10:15) Medication List - Last Reconciled 07/21/25 by Bk Ramirez MD blood sugar diagnostic qd prn blood sugar diagnostic (Accu-Chek Guide test strips) Accu-chek guide me test strips. Patient to check blood sugars 3 times every other day blood-glucose meter As directed blood-glucose sensor ([employer] Chad 3 Sensor device) As directed calcium carbonate-vitamin D3 500 mg-5 mcg (200 unit) (Calcium 500 + D) 1 tab PO DAILY glipizide 5 mg PO BID 90 days Jardiance (empagliflozin) 25 mg PO DAILY 90 days NS lancets qd prn lisinopril 10 mg PO DAILY 90 days lovastatin 40 mg PO DAILY Tobacco use date assessed: 02/24/25 Dental Screening Dental Screen Date: 02/24/25 HPI HPI Comments History of Present Illness Details History of Present Illness The patient is a 64 year old female presenting with insomnia. and regular f.u apt Insomnia and Grief Reaction: - The patient reports difficulty sleepin g following the of her 43-year-old daughter in a car accident in May. - She is participating in therapy [facility] via phone with her 's therapist from the [place]. - She has no prior history of using slee p aids. Type 2 Diabetes Mellitus: - Her condition is managed with Jardianc e and glipizide. - A recent hemoglobin A1c was 7.3%. - She reports not taking Wegovy, which w as previously prescribed, due to the high cost of $1500 despite insurance approval. Hypertension: - Her hypertension is managed with lisin opril. - Her blood pressure is well controlled, with a recent reading of 120/72 mmHg. Hyperlipidemia: - Her hyperlipidemia is managed with traci astatin. Medical History: - Type 2 diabetes mellitus - Hypertension - Hyperlipidemia - Grief reaction following the of her daughter. 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 Cognitive needs: No Hearing needs: No Vision needs: Yes Female Reproductive History Menstrual Age of Menarche: 13 Questionnaire Thrive Questionnaire Date Thrive assessed: 02/23/25 I am a: Patient What is your living situation today?: I choose not to answer this question Within the past 12 months, did the food you bought not last and you didn't have the money to get more?: I choose not to answer this question Within the past 12 months, did you worry whether your food would run out before you got money to buy more?: I choose not to answer this question Do you have trouble paying for medicines?: I choose not to answer this question Do you have trouble getting transportation to medical appointments?: I choose not to answer this question Do you have trouble paying your heating and electricity bill?: I choose not to answer this question Do you have trouble taking care of your child, family member or friend?: I choose not to answer this question Do you have trouble with day-to-day activities such as bathing, preparing meals, shopping, managing finances, etc.?: I choose not to answer this question Are you currently unemployed and looking for a job?: I choose not to answer this question Are you interested in more education?: I choose not to answer this question Please select the resources that you would like help with: None Currently or been in a relationship where the following occur: I choose not to answer THRIVE Score: 0 GRAYSON-7 AMB Questionnaire GRAYSON-7 Date GRAYSON - 7 assessed: 02/24/25 Source: Developed by Drs. Bo Can, Ermelinda Franco, Braulio Jones and colleagues, with an educational peter from [employer]. Review of Systems Narrative Review of Systems - General: No fever no chills - Neurological: No headaches no dizziness - Ear nose throat: No sore throat no hearing difficulty no ear pain - Cardiovascular: No syncope, no chest pain, no palpitations - Gastrointestinal: No nausea vomiting or diarrhea - Endocrine: No polyuria polydipsia no heat intolerance - Genitourinary: No dysuria , no blood in urine Physical exam (Primary Care) Vital Signs: Last Vital Signs Pulse 90 07/21/25 10:30 BP 120/72 07/21/25 10:30 Pulse Ox 97 07/21/25 10:30 BMI result Body Mass Index 32.0 Tobacco/Smoking Status: Tobacco use Status Tobacco use date assessed 02/24/25 07/21/25 10:31 Patient Tobacco Use Status Former Tobacco user 07/21/25 10:31 e-Cigarette/Vaping Use Never Used 07/21/25 10:31 Thrive Assessment: Date of Thrive Assessment Date Thrive assessed 02/23/25 07/21/25 10:31 Currently or been in a relationship where the following occur: I choose not to answer Narrative Physical Exam - General: No acute distress - HEENT: No acute findings - Neck: Supple - Respiratory system: Able to talk in full sentences, no audible wheeze - Cardiovascular: S1-S2 regular in rate and rhythm - Gastrointestinal: No pain - Extremities: No new findings - 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 x3 motor intact - Skin: Normal turgor Coding Level of Care Code Est Pt Level 4 (47608) Diagnoses Diabetes 1.5, managed as type 2 E13.9 Grief reaction F43.20 Difficulty sleeping G47.9 Class 1 obesity due to excess calories with serious comorbidity and body mass index (BMI) of 33.0 to 33.9 in adult E66.09; Z68.33 Obesity classification: adult class 1 (BMI 30 - 34.9) Serious obesity comorbidity presence: with serious comorbidity Body mass index: BMI 33.0-33.9 Lipid disorder E78.9 Hypertension, essential I10 Moderate episode of recurrent major depressive disorder F33.1 Active/Remission status: currently active Major depression episode severity: moderate Anxiety, generalized F41.1 Assessment & Plan Assessment & Plan (1) Diabetes 1.5, managed as type 2: Code(s): E13.9 - Other specified diabetes mellitus without complications Category: Medical (2) Grief reaction: Code(s): F43.20 - Adjustment disorder, unspecified Category: Medical (3) Difficulty sleeping: Code(s): G47.9 - Sleep disorder, unspecified Category: Medical (4) Obesity due to excess calories: Code(s): E66.09 - Other obesity due to excess calories Category: Medical Qualifiers: Obesity classification: adult class 1 (BMI 30 - 34.9) Serious obesity comorbidity presence: with serious comorbidity Body mass index: BMI 33.0-33.9 Qualified Code(s): E66.09 - Other obesity due to excess calories; Z68.33 - Body mass index [BMI] 33.0-33.9, adult (5) Lipid disorder: Code(s): E78.9 - Disorder of lipoprotein metabolism, unspecified Category: Medical (6) Hypertension, essential: Code(s): I10 - Essential (primary) hypertension Category: Medical (7) Major depression, recurrent: Code(s): F33.9 - Major depressive disorder, recurrent, unspecified Category: Medical Qualifiers: Active/Remission status: currently active Major depression episode severity: moderate Qualified Code(s): F33.1 - Major depressive disorder, recurrent, moderate (8) Anxiety, generalized: Code(s): F41.1 - Generalized anxiety disorder Category: Medical Plan Problem List - Insomnia - Grief reaction - Type 2 diabetes mellitus - Hypertension - Hyperlipidemia Plan - A prescription for 30 tablets of lorazepam will be sent to help with sleep and anxiety. - The patient was advised to take lorazepam only at night and was informed that it is a controlled medication. and will cause drawsiness, dont drive while taking it or work with machine, not to share, there is a risk of falling at night if stood up - If she still requires a sleep aid after finishing the lorazepam, the medication will be switched to a non-controlled option. - A refill for Jardiance will be sent. - The patient was advised to follow up in approximately three weeks to discuss her response to the new medication. - A follow-up appointment is scheduled for early November. - continue other meds Medications: Refilled Jardiance (empagliflozin) 25 mg PO DAILY 90 tabs 0RF 90 days NS
== END 2025-07-21 10:46 | disposition home or self-care (01) ==
LOC: HO.HMCC 10:26
PROVIDERS: PCP Internal Medicine; Visit Provider Internal Medicine
DX: E13.9 Other specified diabetes mellitus without complications (principal); F43.20 Adjustment disorder, unspecified; G47.9 Sleep disorder, unspecified; E66.09 Other obesity due to excess calories; Z68.33 Body mass index [BMI] 33.0-33.9, adult; E78.9 Disorder of lipoprotein metabolism, unspecified; I10 Essential (primary) hypertension; F33.1 Major depressive disorder, recurrent, moderate; F41.1 Generalized anxiety disorder